=== PATIENT | female | born 1945 | race Caucasian/White ===

== ENCOUNTER → 2016-11-18 | Day surgery (SDC) | payer OTHER ==
[~2016-11-18] VITALS: Ht 165.1 cm; Wt 95.3 kg
[~2016-11-18] MED LIST: ACETAMINOPHEN 325 MG TAB PO PRN; ACETYLCHOLINE OPHTH SOLN 1% 2ML As Ordered ONE; ACETYLCHOLINE OPHTH SOLN 1% 2ML XX ONE; BALANCED SALT IRRIGATION SOL 500ML GLASS BOTTLE (FOR OR EYE COMPOUND) IR ONE; BSS with VANC/TOB/EPI for EYE CASES IR ONE; CEFUROXIME 1MG/0.1ML INTRACAMERAL INJ As Ordered ONE; CEFUROXIME 1MG/0.1ML INTRACAMERAL INJ ICAM ONE; CYCLOPENTOLATE 2% OPHTH SOLN XX ONE; D5W/0.2% SODIUM CHLORIDE 250 ML IV SCH; HEALON DUET (HEALON 10MG/ML 0.55ML & HEALON ENDOCOAT 30MG/ML 0.85ML) As Ordered ONE; HEALON DUET (HEALON 10MG/ML 0.55ML & HEALON ENDOCOAT 30MG/ML 0.85ML) XX ONE; KETOROLAC 0.5% OPHTH SOLN XX ONE; LIDOCAINE 1% SDV 5 ML VIAL As Ordered ONE; LIDOCAINE 1% SDV 5 ML VIAL XX ONE; LIDOCAINE 4% INJ 5 ML AMP OU ONE; MIDAZOLAM INJ 2 MG/2 ML VIAL (J2250) As Ordered ONE; OFLOXACIN 0.3 % (OCUFLOX) OPTH SOL 5ML XX ONE; OMEP20CA3 PO; ONDANSETRON 4MG/2ML VIAL (J2405) As Ordered ONE; PHENYLEPHRINE 2.5% OPHTH SOL 2ML XX ONE; POVIDONE-IODINE 5% OPHTH PREP SOL 30ML As Ordered ONE; PROPARACAINE 0.5% OPHTH SOL 15ML XX PRN; SERT-141 PO; SIMV20TA2 PO; TRIMETHOBENZAMIDE 300 MG CAP PO PRN; TROPICAMIDE 1% OPHTH SOLN 2 ML XX ONE; fentaNYL 100 MCG/2 ML INJECTION (J3010) As Ordered ONE
[2016-11-18 08:30] VITALS: BP 130/78
--- NOTE | 2016-11-18 13:21 | RO ---
DATE OF PROCEDURE: 11/18/2016 PREPROCEDURE DIAGNOSIS: Age-related nuclear cataract right eye. POSTPROCEDURE DIAGNOSIS: Age-related nuclear cataract right eye. PROCEDURE: Phacoemulsification and posterior chamber intraocular lens implantation, right eye. Lens used was a PCB 00 22.0 diopter. SURGEON: Ofe Collazo MD DRY TRANSFER MAN: ANESTHESIA: Topical with sedation. DESCRIPTION OF PROCEDURE: The patient was prepped and draped in the usual fashion. A lid speculum was placed between the lids. The eye was fixated. A stab incision was made to the anterior chamber, and 1% nonpreserved Lidocaine was instilled. Then, viscoelastic was instilled. The eye was refixated. A 2.75 mm sapphire keratome was used to make a clear corneal temporal limbal incision. Capsulorrhexis was begun with a 30-gauge bent needle and then carried out in a circular fashion with capsulorrhexis forceps. The lens was hydrodissected, and then the phacoemulsification unit was used to make a groove in the nucleus and two meridians. The nucleus was then cracked into four quadrants. Each quadrant was removed with the phacoemulsification unit. Any remaining cortex was removed with the I+A unit. Capsular bag was refilled with viscoelastic. A posterior chamber intraocular lens was placed in the capsular bag without difficulty. Any remaining viscoelastic was removed with the I+A unit. The wound was hydrated, and Miochol and cefuroxime were instilled into the anterior chamber. The patient tolerated the procedure well and went to the recovery room in stable condition.
== END | disposition home or self-care (01) ==
LOC: M SDC 06:05
PROVIDERS: ATTEND Ophthalmology
DX: H25.11 Age-related nuclear cataract, right eye (principal); R23.8 Other skin changes; H35.30 Unspecified macular degeneration; K21.9 Gastro-esophageal reflux disease without esophagitis; E78.00 Pure hypercholesterolemia, unspecified; M19.90 Unspecified osteoarthritis, unspecified site; F32.9 Major depressive disorder, single episode, unspecified; F41.9 Anxiety disorder, unspecified; Z79.899 Other long term (current) drug therapy; Z88.2 Allergy status to sulfonamides; Z88.0 Allergy status to penicillin; Z88.7 Allergy status to serum and vaccine; Z88.8 Allergy status to other drugs, medicaments and biological substances; Z91.041 Radiographic dye allergy status; Z91.018 Allergy to other foods; Z91.030 Bee allergy status; Z91.040 Latex allergy status; Z91.048 Other nonmedicinal substance allergy status
CPT/HCPCS: 66984; J2250; J2405; J3010; V2632

== ENCOUNTER → 2017-08-30 | Outpatient (REF) | payer OTHER ==
[~2017-08-30] MED LIST changes: -ACETAMINOPHEN 325 MG TAB PO PRN; -ACETYLCHOLINE OPHTH SOLN 1% 2ML As Ordered ONE; -ACETYLCHOLINE OPHTH SOLN 1% 2ML XX ONE; -BALANCED SALT IRRIGATION SOL 500ML GLASS BOTTLE (FOR OR EYE COMPOUND) IR ONE; -BSS with VANC/TOB/EPI for EYE CASES IR ONE; -CEFUROXIME 1MG/0.1ML INTRACAMERAL INJ As Ordered ONE; -CEFUROXIME 1MG/0.1ML INTRACAMERAL INJ ICAM ONE; -CYCLOPENTOLATE 2% OPHTH SOLN XX ONE; -D5W/0.2% SODIUM CHLORIDE 250 ML IV SCH; -HEALON DUET (HEALON 10MG/ML 0.55ML & HEALON ENDOCOAT 30MG/ML 0.85ML) As Ordered ONE; -HEALON DUET (HEALON 10MG/ML 0.55ML & HEALON ENDOCOAT 30MG/ML 0.85ML) XX ONE; +IBUP-1022 PO; -KETOROLAC 0.5% OPHTH SOLN XX ONE; -LIDOCAINE 1% SDV 5 ML VIAL As Ordered ONE; -LIDOCAINE 1% SDV 5 ML VIAL XX ONE; -LIDOCAINE 4% INJ 5 ML AMP OU ONE; -MIDAZOLAM INJ 2 MG/2 ML VIAL (J2250) As Ordered ONE; -OFLOXACIN 0.3 % (OCUFLOX) OPTH SOL 5ML XX ONE; -ONDANSETRON 4MG/2ML VIAL (J2405) As Ordered ONE; -PHENYLEPHRINE 2.5% OPHTH SOL 2ML XX ONE; -POVIDONE-IODINE 5% OPHTH PREP SOL 30ML As Ordered ONE; -PROPARACAINE 0.5% OPHTH SOL 15ML XX PRN; -SERT-141 PO; +SERT50TA PO; -TRIMETHOBENZAMIDE 300 MG CAP PO PRN; -TROPICAMIDE 1% OPHTH SOLN 2 ML XX ONE; -fentaNYL 100 MCG/2 ML INJECTION (J3010) As Ordered ONE
== END ==
LOC: M SFHCADAM 09:20
PROVIDERS: ATTEND Family Medicine
DX: L82.1 Other seborrheic keratosis (principal)

== ENCOUNTER 2017-09-10 09:10 | Emergency (ER) | payer OTHER ==
[~2017-09-10] VITALS: Ht 165.1 cm; Wt 100.0 kg
[~2017-09-10 09:10] MED LIST changes: -IBUP-1022 PO
--- NOTE | 2017-09-10 10:30 | REP ---
LEFT WRIST COMPLETE: 09/10/2017. Clinical history: Trauma. Findings: Four views are provided. There are degenerative changes at the first CMC joint and articulation between the distal pole of the scaphoid and the multangular bones. No visible or displaced fracture. Carpal joint spaces otherwise preserved. Degenerative changes of the first MCP joint. The metacarpals are without fracture or focal lesion. The other MCP joints of the thumb IP joints show minor degenerative change. Soft tissue swelling dorsal wrist and forearm. Impression: 1. Degenerative changes of the wrist and hand as described. I see no definite displaced fracture. There is soft tissue swelling dorsal hand, wrist and forearm. No visible displaced fracture or avulsion. Slight angulation as the lateral view projects the dorsal aspect of the triquetrum. I do not believe this represents fracture. Please correlate clinically. Signed by Michael Leon MD 09/10/2017 05:29 P
--- NOTE | 2017-09-10 10:44 | REP ---
CT BRAIN WITHOUT CONTRAST: 09/10/2017. Comparison: No prior study. Clinical history: Trauma. Findings: Soft tissue and bone windows are reviewed for each slice level. Lateral ventricles are midline and symmetric. Third and fourth ventricles unremarkable. The basal ganglia intact. There is very minimal heterogeneous low attenuation white matter change suggesting mild small vessel ischemic changes in the cerebral hemispheres. There is mild atrophy but the cortical stripe otherwise preserved. No acute infarct, intracranial hemorrhage, mass, mass effect, edema or extra-axial fluid collection. Brainstem intact. Cerebellum unremarkable. Basal cisterns are intact. Visualized mastoids and sinuses are clear. The skull base and calvarium show no fracture or focal lesion. There is a soft tissue calcification adjacent to the left parietal vertex about 13 mm as a benign finding. No destructive lesion in the adjacent skull. Impression: 1. Mild atrophy, age appropriate with chronic small vessel white matter ischemic changes. 2. No bleed, acute infarct, mass, edema or extra-axial fluid collection. 3. Skull base and calvarium without fracture or focal lesion. Sinuses and mastoids clear. Subcutaneous scalp calcification about 13 mm, benign finding. Signed by Michael Leon MD 09/10/2017 05:30 P
--- NOTE | 2017-09-10 10:49 | REP ---
CT CERVICAL SPINE WITHOUT CONTRAST: 09/10/2017. Clinical history: Trauma. Comparison: None. Findings: Our trauma protocol was utilized. Sagittal reconstructions show a few millimeters of anterior subluxation of C3 on C4 and C4 on C5 felt related to facet arthropathy at those levels. There are posterior osteophytes at C5-6 and C6-7 with spondylosis and disc space narrowing at C4-5 through C6-7. Anterior osteophytes noted at those levels and there are uncinate spurs at multiple levels. The dens is intact. It has degenerative articular relationship to the anterior arch of C1 and is symmetric in relationship to the lateral masses. No compression fracture is seen. No prevertebral swelling. Skull base shows occipital bone intact. The visualized mastoids symmetric. Spinous processes, lamina, transverse processes and pedicles intact. There is facet arthropathy at multiple levels. Central canal mildly stenotic at C5-6 due to disc bulge and posterior osteophytes. Other disc levels have more ample space. The C2-3 and right C3-4 foramina are ample. There is encroachment due to uncinate facet spurs on the left at C3-4 and C4-5 with marginally adequate right C4-5 foramen. At C5-6, there is foraminal encroachment on the right due to combined factors while the left is marginally adequate with both marginally adequate at C6-7 and ample at C7-T1. Impression: 1. Degenerative disc changes at multiple levels as described with a few millimeters of anterolisthesis of C4 on 5 and C3 on 4 due to facet arthritis. 2. No compression fracture or malalignment. No prevertebral swelling. 3. Foraminal encroachment at multiple levels due to uncinate and facet spurs as described in detail above. None of this appears acute. Dens intact. Signed by Michael Leon MD 09/10/2017 05:30 P
--- NOTE | 2017-09-10 11:02 | REP ---
CT MAXILLOFACIAL WITHOUT CONTRAST: 09/10/2017. Clinical history: Trauma. Comparison: No prior study. Findings: Axial soft-tissue and bone windows with coronal and sagittal bone window reconstructions provided. The nasal bones are intact. Nasal spine of the maxilla intact. Slight deviation of the nasal septum towards the right side anteriorly. Maxilla and mandible are edentulous. There are no air-fluid levels or opacifications of the sinuses. The ostiomeatal complexes show patency of the left ostium and infundibulum. The right ostium and infundibulum intact. There is a polina bullosa in the left middle turbinate but not the right. The maxillary sinus hart, zygomatic arches, lateral orbital and medial orbital struts were all intact. Orbital floors intact. The globes, optic nerves and extraocular muscles are unremarkable. The mandibular condyles, rami, coronoid processes and alveolar ridges are without fracture or destructive lesion. Normal articulation with the skull base. Visualized mastoids symmetric and normal. Impression: 1. There is no CT evidence of facial bone fracture. Orbits and contents, visualized sinuses and mastoids are all unremarkable. 2. The parotid and visualized submandibular glands symmetric and normal without visible adenopathy. 3. Skull base and calvarium included were without fracture or focal lesion. Nothing acute. Signed by Michael Leon MD 09/10/2017 05:30 P
[2017-09-10] MEDS ORDERED: ONDANSETRON 4 MG ORAL DISINTEGRATING TAB (S0181) PO ONE (11:15)
[2017-09-10] MEDS ORDERED: MORPHINE 4 MG/ML 1ML SYRINGE SC ONE (11:15)
[2017-09-10] MEDS ORDERED: IBUP-1022 PO (12:11)
--- NOTE | 2017-09-10 12:11 | REP ---
CT LEFT WRIST WITHOUT CONTRAST: 09/10/2017 CLINICAL HISTORY: Question fracture-dislocation triquetrum. TECHNIQUE: Axial soft-tissue and bone windows with coronal and sagittal reformats and 3D surface renderings rotated about the longitudinal and horizontal axis of the wrist. COMPARISON: X-ray today. FINDINGS: Degenerative changes with sclerosis and spurring at multiple articulations. Narrowing is greatest at the articulation from the distal pole of the scaphoid with the multangular bones. CMC joint degenerative changes of the thumb. No widening of the scapholunate or lunatotriquetral joint spaces to suggest any ligament disruption. Distal radioulnar joint grossly intact. No fracture, distal radius or ulna with styloids intact. Hook of the hamate intact. On the axial images, the dorsal aspect of the hamate slightly protrudes above the capitate dorsal margin. This is felt to be normal finding. There are spurs at dorsal superior margin of the capitate, and the greater multangular bone shows a spur as does the distal pole of the scaphoid. On the 3D surface rendering rotated about the longitudinal axis (batch 1), the dorsal aspect of the triquetrum precisely matches the appearance of the lateral view of the wrist with the slight angulation of that view projecting it dorsally on the 3D reconstruction as well as the radiograph. There is no triquetral fracture. No subluxation of the triquetrum. IMPRESSION: 1. No CT evidence of fracture, subluxation, dislocation of the triquetrum. No lunate subluxation, dislocation, or lunate tilt on the sagittal reconstructions. 2. On image 8 of batch 1 of the 3D surface renderings, that projection precisely matches the radiograph on its lateral projection and does show the projection of the dorsal aspect of the triquetrum as on the radiograph. There is no fracture. Degenerative changes throughout the wrist as described above. Signed by Michael Leon MD 09/10/2017 05:32 P
[2017-09-10] MEDS ORDERED: IBUPROFEN 600 MG TAB PO ONE (12:15)
[2017-09-10 13:14] VITALS: BP 153/75
== END 2017-09-10 13:17 | disposition home or self-care (01) ==
LOC: M ED 09:10 → EDBD 09:10 → M ED 13:17
DX: S00.83XA Contusion of other part of head, initial encounter (principal); S63.502A Unspecified sprain of left wrist, initial encounter; W01.198A Fall on same level from slipping, tripping and stumbling with subsequent striking against other object, initial encounter; Y92.019 Unspecified place in single-family (private) house as the place of occurrence of the external cause; Y93.89 Activity, other specified; Y99.8 Other external cause status; H35.30 Unspecified macular degeneration; H54.8 Legal blindness, as defined in USA; I67.82 Cerebral ischemia; E78.00 Pure hypercholesterolemia, unspecified; M50.30 Other cervical disc degeneration, unspecified cervical region; M19.90 Unspecified osteoarthritis, unspecified site; K21.9 Gastro-esophageal reflux disease without esophagitis; Z79.899 Other long term (current) drug therapy; Z88.8 Allergy status to other drugs, medicaments and biological substances; Z91.018 Allergy to other foods; J30.1 Allergic rhinitis due to pollen; Z91.040 Latex allergy status; Z88.0 Allergy status to penicillin; Z88.1 Allergy status to other antibiotic agents; Z88.2 Allergy status to sulfonamides; L23.1 Allergic contact dermatitis due to adhesives; Z98.890 Other specified postprocedural states

== ENCOUNTER 2018-02-14 11:40 | Outpatient (RCR) | payer MEDICARE, SELFPAY, MEDICAID | END 2018-02-28 | LOC: M OT 11:40 | DX: Z51.89 Encounter for other specified aftercare (principal); M15.9 Polyosteoarthritis, unspecified | CPT/HCPCS: 97110 ==

== ENCOUNTER → 2018-04-14 | Outpatient (CLI) | payer MEDICARE | LOC: M WUC 18:37 | DX: M25.552 Pain in left hip (principal) | CPT/HCPCS: 73502 ==

== ENCOUNTER 2018-06-03 18:00 | Emergency (ER) | payer MEDICARE, OTHER, MEDICAID | END 2018-06-03 21:22 | disposition home or self-care (01) | LOC: M ED 18:00 | DX: L03.115 Cellulitis of right lower limb (principal); R20.8 Other disturbances of skin sensation; H35.30 Unspecified macular degeneration; F32.9 Major depressive disorder, single episode, unspecified; Z79.899 Other long term (current) drug therapy; Z91.89 Other specified personal risk factors, not elsewhere classified; Z91.040 Latex allergy status; Z88.0 Allergy status to penicillin; Z88.2 Allergy status to sulfonamides; Z91.018 Allergy to other foods | CPT/HCPCS: 93971 ==

== ENCOUNTER → 2018-06-03 | Outpatient (REF) | payer MEDICARE, MEDICAID ==
[2018-06-03 13:30] LABS: BASO # 0.1 10^3/uL (0.0-0.2); BASO % 0.6 % (0.0-1.0); EOS # 0.1 10^3/uL (0.0-0.50); EOS % 1.5 % (0.0-3.0); HEMATOCRIT 39.3 % (36.0-47.0); HEMOGLOBIN 12.4 g/dl (12.0-15.5); IMMATURE GRANULOCYTE % 0.4 % (0-3.0); LYMPH # 1.6 10^3/uL (1.5-4.5); LYMPH % 20.7 % (24.0-44.0); MEAN CORPUSCULAR HEMOGLOBIN 28.1 pg (27.0-33.0); MEAN CORPUSCULAR HGB CONC 31.6 g/dl (32.0-36.5); MEAN CORPUSCULAR VOLUME 89.1 fl (80.0-96.0); MONO # 0.6 10^3/uL (0.0-0.8); NEUTROPHILS # 5.5 10^3/uL (1.8-7.7); NEUTROPHILS % 69.8 % (36.0-66.0); PLATELET COUNT, AUTOMATED 222 10^3/uL (150-450); RED BLOOD COUNT 4.41 10^6/uL (4.00-5.40); RED CELL DISTRIBUTION WIDTH 13.8 % (11.5-14.5); WHITE BLOOD COUNT 7.8 10^3/uL (4.0-10.0)
[2018-06-03 13:40] LABS: ANION GAP 8 MEQ/L (8-16); BLOOD UREA NITROGEN 10 MG/DL (7-18); C REACTIVE PROTEIN QUANTITATIV 0.78 MG/DL (0.00-0.30); CARBON DIOXIDE LEVEL 28 MEQ/L (21-32); CHLORIDE LEVEL 107 MEQ/L (98-107); CREATININE FOR GFR 0.69 MG/DL (0.55-1.30); GLOMERULAR FILTRATION RATE > 60.0 (>39); GLUCOSE, FASTING 92 MG/DL (70-100); POTASSIUM SERUM 3.9 MEQ/L (3.5-5.1); RHEUMATOID FACTOR QUANT < 10.0 IU/ML (<15.0); SODIUM LEVEL 143 MEQ/L (136-145); URIC ACID 4.1 MG/DL (2.6-6.0)
[2018-06-03 14:01] LABS: ERYTHROCYTE SEDIMENTATION RATE 51 mm/hr (0-30)
[2018-06-03 14:30] LABS: D-DIMER QUANT 764.1 ng/ml (<500)
[2018-06-05 00:06] LABS: ANA (HEP2) Negative (.); Lyme Disease IgG/IgM Antibodie <0.91 ISR (0.00-0.90); Lyme Disease IgM Ab Quantitati <0.80 index (0.00-0.79)
== END ==
LOC: M SFHCADAM 11:36
DX: M79.89 Other specified soft tissue disorders (principal)
CPT/HCPCS: 84550

== ENCOUNTER → 2018-06-09 | Outpatient (CLI) | payer MEDICARE, MEDICAID | LOC: M ADAMS 09:40 | DX: M77.31 Calcaneal spur, right foot (principal); M25.471 Effusion, right ankle | CPT/HCPCS: 73610 ==

== ENCOUNTER → 2018-06-22 | Outpatient (CLI) | payer MEDICARE, MEDICAID | LOC: M RAD 17:11 | DX: M25.471 Effusion, right ankle (principal); S86.211A Strain of muscle(s) and tendon(s) of anterior muscle group at lower leg level, right leg, initial encounter; M65.861 Other synovitis and tenosynovitis, right lower leg; X58.XXXA Exposure to other specified factors, initial encounter; Y92.9 Unspecified place or not applicable; M77.31 Calcaneal spur, right foot | CPT/HCPCS: 73721 ==

== ENCOUNTER → 2018-08-03 | Outpatient (CLI) | payer MEDICARE, MEDICAID | LOC: M ADAMS 13:59 | DX: R05 Cough (principal) | CPT/HCPCS: 71046 ==

== ENCOUNTER → 2018-10-27 | Outpatient (REF) | payer MEDICARE, MEDICAID ==
[~2018-10-27] MED LIST changes: +BACITAB PO; +CLIN150C14 PO; +IBUP-1022 PO; +NORC1TAB4 PO
[2018-10-27 12:56] LABS: BLOOD UREA NITROGEN 10 MG/DL (7-18); CALCIUM LEVEL 9.3 MG/DL (8.8-10.2); CARBON DIOXIDE LEVEL 28 MEQ/L (21-32); CHLORIDE LEVEL 104 MEQ/L (98-107); CREATININE FOR GFR 0.75 MG/DL (0.55-1.30); GLOMERULAR FILTRATION RATE > 60.0 (>39); GLUCOSE, FASTING 87 MG/DL (70-100); POTASSIUM SERUM 5.1 MEQ/L (3.5-5.1); SODIUM LEVEL 140 MEQ/L (136-145)
== END ==
LOC: M SFHCADAM 11:09
PROVIDERS: ATTEND Family Medicine
DX: F41.8 Other specified anxiety disorders (principal)

== ENCOUNTER → 2018-10-28 | Outpatient (CLI) | payer MEDICARE, MEDICAID ==
--- NOTE | 2018-10-28 12:10 | REP ---
Clinical: Swelling. Technique: AP, lateral, bilateral oblique and sunrise views of the right knee. Findings: Lateral view demonstrates anterior swelling without obvious effusion. Moderate tricompartmental osteoarthritic degenerative changes include joint space narrowing, subchondral sclerosis and marginal osteophyte formation. No acute fracture or dislocation. Impression: Anterior swelling and moderate tricompartmental arthritic changes. Electronically Signed by Evin Choe MD 10/28/2018 12:02 P
== END ==
LOC: M ADAMS 11:28
PROVIDERS: ATTEND Family Medicine
DX: M17.11 Unilateral primary osteoarthritis, right knee (principal); M25.761 Osteophyte, right knee; M25.461 Effusion, right knee
CPT/HCPCS: 73564; G0463

== ENCOUNTER → 2018-11-11 | Outpatient (REF) | payer MEDICARE, MEDICAID | LOC: M SFHCPLAZ 17:22 | PROVIDERS: ATTEND Dermatology | DX: B07.9 Viral wart, unspecified (principal) ==

== ENCOUNTER 2019-01-26 09:50 | Outpatient (RCR) | payer MEDICARE | END 2019-01-29 | LOC: M PT 09:50 | PROVIDERS: ATTEND Family Medicine | DX: M25.561 Pain in right knee (principal) ==

== ENCOUNTER 2019-02-20 10:45 | Outpatient (RCR) | payer MEDICARE ==
[~2019-02-20 10:45] MED LIST changes: -NORC1TAB4 PO; +NORC1TAB7 PO; +SERT-141 PO; -SERT50TA PO
== END 2019-02-28 ==
LOC: M PT 10:45
PROVIDERS: ATTEND Family Medicine
DX: M25.561 Pain in right knee (principal)

== ENCOUNTER 2019-03-16 10:40 | Outpatient (RCR) | payer MEDICARE | END 2019-03-31 | LOC: M PT 10:40 | PROVIDERS: ATTEND Family Medicine | DX: M25.561 Pain in right knee (principal) ==

== ENCOUNTER 2019-07-31 17:44 | Emergency (ER) | payer MEDICARE, MEDICAID ==
[~2019-07-31] VITALS: Ht 157.5 cm; Wt 102.3 kg
[~2019-07-31 17:44] MED LIST changes: -OMEP20CA3 PO; +OMEP20CA4 PO
[2019-07-31] MEDS ORDERED: METR-265 (19:40)
[2019-07-31] MEDS ORDERED: HYDR-3363 (19:40)
[2019-07-31] MEDS ORDERED: LEVO500T3 (19:40)
[2019-07-31 21:08] VITALS: BP 125/78
== END 2019-07-31 21:13 | disposition home or self-care (01) ==
LOC: M ED 17:44 → EEVIPCON 17:44 → M ED 21:13
DX: E78.5 Hyperlipidemia, unspecified (principal); F41.9 Anxiety disorder, unspecified; F32.9 Major depressive disorder, single episode, unspecified; L02.01 Cutaneous abscess of face
CPT/HCPCS: 87070; 87077; 87186; 87205; 99284; G0463

== ENCOUNTER → 2019-11-10 | Outpatient (REF) | payer MEDICARE, MEDICAID ==
[~2019-11-10] MED LIST changes: +HYDR-3363; +LEVO500T3; +METR-265; +OMEP1CAP73 PO; -OMEP20CA4 PO; -SIMV20TA2 PO; +SIMV20TA22 PO
[2019-11-10 14:16] LABS: APPEARANCE, URINE HAZY (CLEAR); BACTERIA, URINE AUTO NEGATIVE (NEGATIVE); BILIRUBIN, URINE AUTO NEGATIVE (NEGATIVE); BLOOD, URINE BLOOD NEGATIVE (NEGATIVE); COLOR, URINE YELLOW (YELLOW); GLUCOSE, URINE (UA) AUTO NEGATIVE (NEGATIVE); KETONE, URINE AUTO NEGATIVE (NEGATIVE); LEUKOCYTE ESTERASE, URINE AUTO 1+ (NEGATIVE); NITRITE, URINE AUTO NEGATIVE (NEGATIVE); PROTEIN, URINE AUTO NEGATIVE (NEGATIVE); RBC, URINE AUTO 1 /HPF (0-3); SPECIFIC GRAVITY URINE AUTO 1.014 (1.002-1.035); SQUAMOUS EPITHELIAL CELL UR AU 3 /HPF (0-6); WBC, URINE AUTO 10 /HPF (0-3)
== END ==
LOC: M SFHCADAM 11:16
PROVIDERS: ATTEND Family Medicine
DX: R80.9 Proteinuria, unspecified (principal); Z23 Encounter for immunization
CPT/HCPCS: 81001; 90682; G0008; G0463

== ENCOUNTER → 2019-11-13 | Outpatient (REF) | payer MEDICARE, MEDICAID ==
[2019-11-13 13:16] LABS: BASO # 0.1 10^3/uL (0.0-0.2); BASO % 0.7 % (0.0-1.0); EOS # 0.1 10^3/uL (0.0-0.5); EOS % 1.9 % (0.0-3.0); HEMATOCRIT 41.7 % (36.0-47.0); HEMOGLOBIN 12.9 g/dl (12.0-15.5); LYMPH # 1.8 10^3/uL (1.5-5.0); MEAN CORPUSCULAR HEMOGLOBIN 27.8 pg (27.0-33.0); MEAN CORPUSCULAR HGB CONC 30.9 g/dl (32.0-36.5); MEAN CORPUSCULAR VOLUME 89.9 fl (80.0-96.0); MONO # 0.4 10^3/uL (0.0-0.8); MONO % 6.5 % (0.0-5.0); NEUTROPHILS # 4.4 10^3/uL (1.5-8.5); NEUTROPHILS % 64.6 % (36.0-66.0); PLATELET COUNT, AUTOMATED 241 10^3/uL (150-450); RED BLOOD COUNT 4.64 10^6/uL (4.00-5.40); WHITE BLOOD COUNT 6.8 10^3/uL (4.0-10.0)
[2019-11-13 13:53] LABS: ALBUMIN 3.8 GM/DL (3.2-5.2); ALT/SGPT 18 U/L (12-78); BILIRUBIN,DIRECT 0.1 MG/DL (0.0-0.2); BILIRUBIN,TOTAL 0.3 MG/DL (0.2-1.0); BLOOD UREA NITROGEN 19 MG/DL (7-18); CALCIUM LEVEL 9.3 MG/DL (8.8-10.2); CARBON DIOXIDE LEVEL 27 MEQ/L (21-32); CHLORIDE LEVEL 106 MEQ/L (98-107); CHOLESTEROL LEVEL 214 MG/DL (<200); CHOLESTEROL RISK RATIO 4.553 (<5); CREATININE FOR GFR 0.93 MG/DL (0.55-1.30); GLOMERULAR FILTRATION RATE > 60.0 (>39); GLUCOSE, FASTING 89 MG/DL (70-100); HDL CHOLESTEROL 47 MG/DL (>40); LDL CHOLESTEROL 127 MG/DL (<100); NON-HDL-C 167 MG/DL; POTASSIUM SERUM 5.1 MEQ/L (3.5-5.1); SODIUM LEVEL 141 MEQ/L (136-145); TRIGLYCERIDES LEVEL 198 MG/DL (<150)
== END ==
LOC: M SFHCADAM 08:44
PROVIDERS: ATTEND Family Medicine
DX: R04.0 Epistaxis (principal); E78.5 Hyperlipidemia, unspecified; M15.9 Polyosteoarthritis, unspecified; R80.9 Proteinuria, unspecified
CPT/HCPCS: 17110; 80053; 80061; 82248; 85025; G0463

== ENCOUNTER 2020-10-24 12:07 | Emergency (ER) | payer MEDICARE, MEDICAID ==
[~2020-10-24] VITALS: Ht 157.5 cm; Wt 99.1 kg
[2020-10-24] MEDS ORDERED: TRAZ-252 (12:31)
--- NOTE | 2020-10-24 14:44 | REP ---
INDICATION: BILATERAL LOWER EXTREMITY SWELLING COMPARISON: None. TECHNIQUE: Porras scale and color Doppler evaluation of the bilateral lower extremities using linear high frequency transducer. FINDINGS: Ultrasound examination of the right and left lower extremity deep venous structures from the common femoral vein to the popliteal vein demonstrates normal compressibility flow and wave patterns in response to respiration and augmentation. There is no evidence for deep venous thrombosis. IMPRESSION: No evidence for deep venous thrombosis. <Electronically signed by Evin Choe > 10/24/20 [id number]
[2020-10-24 16:01] LABS: BASO # 0.1 10^3/uL (0.0-0.2); BASO % 0.7 % (0.0-1.0); EOS # 0.2 10^3/uL (0.0-0.5); EOS % 2.8 % (0.0-3.0); HEMOGLOBIN 11.7 g/dl (12.0-15.5); LYMPH # 2.2 10^3/uL (1.5-5.0); LYMPH % 31.9 % (24.0-44.0); MEAN CORPUSCULAR HEMOGLOBIN 27.3 pg (27.0-33.0); MEAN CORPUSCULAR HGB CONC 30.8 g/dl (32.0-36.5); MEAN CORPUSCULAR VOLUME 88.6 fl (80.0-96.0); MONO # 0.5 10^3/uL (0.0-0.8); MONO % 7.2 % (0.0-5.0); NEUTROPHILS # 3.9 10^3/uL (1.5-8.5); NEUTROPHILS % 57.1 % (36.0-66.0); PLATELET COUNT, AUTOMATED 273 10^3/uL (150-450); RED BLOOD COUNT 4.29 10^6/uL (4.00-5.40); WHITE BLOOD COUNT 6.9 10^3/uL (4.0-10.0)
[2020-10-24 16:22] LABS: ERYTHROCYTE SEDIMENTATION RATE 50 mm/hr (0-30)
[2020-10-24 16:33] LABS: BLOOD UREA NITROGEN 7 MG/DL (7-18); C REACTIVE PROTEIN QUANTITATIV 0.89 MG/DL (0.00-0.30); CALCIUM LEVEL 9.6 MG/DL (8.8-10.2); CARBON DIOXIDE LEVEL 28 MEQ/L (21-32); CHLORIDE LEVEL 108 MEQ/L (98-107); CK-MB VALUE MASS < 1.0 NG/ML (<3.6); CPK CREATINE PHOSPHOKINASE 44 U/L (26-192); CREATININE FOR GFR 0.78 MG/DL (0.55-1.30); GLOMERULAR FILTRATION RATE > 60.0 (>39); GLUCOSE, FASTING 84 MG/DL (70-100); MB/CK RELATIVE INDEX 2.27 (< OR =4); NT-PRO BNP 280 PG/ML (<450); POTASSIUM SERUM 3.8 MEQ/L (3.5-5.1); SODIUM LEVEL 140 MEQ/L (136-145); TROPONIN I < 0.02 NG/ML (< 0.10)
[2020-10-24] MEDS ORDERED: KEFL500C17 PO (16:46)
[2020-10-24 17:14] VITALS: BP 145/78
--- NOTE | 2020-11-05 17:34 | ECGEPIP ---
[facility] - ED Test Date: 2020-10-24 Pat Name: SHARLA URRUTIA Department: Room: - Gender: Female [employer] Director: clif : 1945 Requested By: STU CHRISTIANSON Order Number: [id number] Reading MD: Analia Lindsey Measurements Intervals [place] Rate: 70 P: 16 DE: 128 QRS: -58 QRSD: 91 T: 32 QT: 385 QTc: 416 Interpretive Statements SINUS RHYTHM PATTERN CONSISTENT WITH PULMONARY DISEASE LEFT ANTERIOR FASCICULAR BLOCK INTERPRETATION BASED ON A DEFAULT AGE OF 40 YEARS similar to prior EKG 10/17/15 Electronically Signed on 11-05-2020 17:34:28 EST by Analia Lindsey
== END 2020-10-24 17:30 | disposition home or self-care (01) ==
LOC: M ED 12:07
DX: L03.115 Cellulitis of right lower limb (principal); L03.116 Cellulitis of left lower limb; M81.0 Age-related osteoporosis without current pathological fracture; Z88.0 Allergy status to penicillin; Z88.2 Allergy status to sulfonamides; Z88.1 Allergy status to other antibiotic agents; Z91.040 Latex allergy status; Z91.030 Bee allergy status; Z91.018 Allergy to other foods; Z91.048 Other nonmedicinal substance allergy status; Z79.899 Other long term (current) drug therapy

== ENCOUNTER → 2020-11-08 | Outpatient (CLI) | payer MEDICARE ==
[~2020-11-08] MED LIST changes: +KEFL500C17 PO; +TRAZ-252
--- NOTE | 2020-11-08 15:59 | REP ---
INDICATION: DYSPNEA COMPARISON: 08/03/2018 TECHNIQUE: PA and lateral. FINDINGS: The mediastinum and cardiac silhouette are normal/stable. The lung mota demonstrate stable chronic interstitial changes without acute consolidation, effusion, or pneumothorax. The skeletal structures are intact and normal. IMPRESSION: No acute cardiopulmonary process. Chronic changes are appreciated. If the patient remains symptomatic consider chest CT for further investigation. <Electronically signed by Evin Choe > 11/08/20 [id number]
== END ==
LOC: M ADAMS 12:17
PROVIDERS: ATTEND Family Medicine
DX: R06.00 Dyspnea, unspecified (principal)

== ENCOUNTER → 2020-11-08 | Outpatient (REF) | payer MEDICARE ==
[~2020-11-08] MED LIST changes: -CLIN150C14 PO; +CLIN150C15 PO
[2020-11-08 17:58] LABS: ALBUMIN 3.7 GM/DL (3.2-5.2); ALT/SGPT 23 U/L (12-78); BILIRUBIN,TOTAL 0.4 MG/DL (0.2-1.0); BLOOD UREA NITROGEN 10 MG/DL (7-18); CALCIUM LEVEL 9.3 MG/DL (8.8-10.2); CARBON DIOXIDE LEVEL 30 MEQ/L (21-32); CHLORIDE LEVEL 105 MEQ/L (98-107); CREATININE FOR GFR 0.89 MG/DL (0.55-1.30); GLOMERULAR FILTRATION RATE > 60.0 (>39); GLUCOSE, FASTING 86 MG/DL (70-100); NT-PRO BNP 255 PG/ML (<450); POTASSIUM SERUM 5.5 MEQ/L (3.5-5.1); SODIUM LEVEL 138 MEQ/L (136-145); TOTAL PROTEIN 6.8 GM/DL (6.4-8.2)
== END ==
LOC: M SFHCADAM 12:16
PROVIDERS: ATTEND Family Medicine
DX: R60.9 Edema, unspecified (principal); R06.00 Dyspnea, unspecified
CPT/HCPCS: 80053; 83880; 84443; G0463

== ENCOUNTER → 2020-11-12 | Outpatient (REF) | payer MEDICARE ==
[2020-11-12 12:52] LABS: BASO # 0.1 10^3/uL (0.0-0.2); BASO % 0.8 % (0.0-1.0); EOS # 0.1 10^3/uL (0.0-0.5); EOS % 1.9 % (0.0-3.0); HEMATOCRIT 39.7 % (36.0-47.0); HEMOGLOBIN 12.4 g/dl (12.0-15.5); LYMPH # 1.5 10^3/uL (1.5-5.0); LYMPH % 24.2 % (24.0-44.0); MEAN CORPUSCULAR HEMOGLOBIN 27.7 pg (27.0-33.0); MEAN CORPUSCULAR HGB CONC 31.2 g/dl (32.0-36.5); MEAN CORPUSCULAR VOLUME 88.6 fl (80.0-96.0); MONO # 0.4 10^3/uL (0.0-0.8); MONO % 6.2 % (0.0-5.0); NEUTROPHILS # 4.2 10^3/uL (1.5-8.5); NEUTROPHILS % 66.6 % (36.0-66.0); PLATELET COUNT, AUTOMATED 254 10^3/uL (150-450); RED BLOOD COUNT 4.48 10^6/uL (4.00-5.40); WHITE BLOOD COUNT 6.3 10^3/uL (4.0-10.0)
== END ==
LOC: M SFHCADAM 10:59
PROVIDERS: ATTEND Family Medicine
DX: R06.00 Dyspnea, unspecified (principal)

== ENCOUNTER → 2021-01-13 | Outpatient (REF) | payer MEDICARE ==
[~2021-01-13] MED LIST changes: +MOBI4TAB PO
== END ==
LOC: M LAB REF 18:44
PROVIDERS: ATTEND Dermatology
DX: L72.11 Pilar cyst (principal)

== ENCOUNTER 2021-01-20 13:10 | Emergency (ER) | payer MEDICARE ==
[~2021-01-20] VITALS: Ht 165.1 cm; Wt 92.7 kg
[~2021-01-20 13:10] MED LIST changes: -MOBI4TAB PO
--- NOTE | 2021-01-20 14:03 | REP ---
INDICATION: decreased mobility COMPARISON: None. TECHNIQUE: There are five views of the right knee and four views of the left knee. FINDINGS: Right knee: There is advanced osteoarthritis of the medial, lateral and patellofemoral compartments. There is a suprapatellar effusion. No fracture or dislocation. No calcification or foreign body. Left knee: There is advanced osteoarthritis of the medial, lateral patellofemoral compartments. There is a suprapatellar effusion. There is no fracture, dislocation, calcification or foreign body. IMPRESSION: Advanced bilateral tricompartment osteoarthritis. Bilateral suprapatellar effusions. <Electronically signed by Felice Hanley > 01/20/21 1400
[2021-01-20] MEDS ORDERED: KETOROLAC 30 MG/ML 1ML VIAL IM ONE (15:55)
[2021-01-20] MEDS ORDERED: MOBI4TAB PO (16:10)
[2021-01-20 16:28] VITALS: BP 155/91
== END 2021-01-20 16:30 | disposition home or self-care (01) ==
LOC: M ED 13:10
DX: M17.0 Bilateral primary osteoarthritis of knee (principal); Z88.0 Allergy status to penicillin; Z88.1 Allergy status to other antibiotic agents; Z88.2 Allergy status to sulfonamides; Z91.030 Bee allergy status; Z91.040 Latex allergy status; Z91.018 Allergy to other foods; Z91.048 Other nonmedicinal substance allergy status
CPT/HCPCS: 73564; 96372; 99284; J1885

== ENCOUNTER → 2021-03-04 | Outpatient (CLI) | payer MEDICARE ==
[~2021-03-04] MED LIST changes: +ISOVUE-300 61% 50ML VIAL As Ordered ONE; +LIDOCAINE 1% MDV 20ML VIAL As Ordered ONE; +MOBI4TAB PO; +TRIAMCINOLONE ACETONIDE SUSP 40 MG/ML VIAL (J3301) As Ordered ONE
--- NOTE | 2021-03-04 16:44 | REP ---
INDICATION: RT ANKLE OA. COMPARISON: None TECHNIQUE: The procedure was performed by AYSHA Chu, under the direct supervision of Dr. Porras. The benefits and risks of the procedure were explained to the patient, and an informed consent was obtained. Directly prior to the start of the procedure, a formal time-out was completed in the procedure room. The right 2nd and 3rd TMT joint space spaces was localized using fluoroscopic guidance. The skin was prepped and draped in a sterile fashion. Approximately 1 mL of 1% Lidocaine 10 mg/ml was used as a local anesthetic. Using fluoroscopic guidance, a #25 gauge needle was inserted and advanced into the 2nd TMT joint space. Approximately 0.5 mL of Isovue 300 was injected to verify placement. 1.5 mL of the 3 mL solution containing 2 mL 1% lidocaine 10 mg/ml and 1 mL Kenalog 40 milligrams/milliliter was injected into the joint space. The needle was removed and inserted and advanced into the 3rd TMT joint space. Approximately 0.5 mL of Isovue-300 was injected to verify placement. The remaining 1.5 mL of the 3 mL solution was injected into the joint space. The needle was removed and a sterile dressing was applied to the area. FINDINGS: The patient tolerated the procedure well and there were no immediate complications. IMPRESSION: 1. Right 2nd and 3rd TMT joint injections under fluoroscopic guidance.. 0.3 minutes of fluoroscopy time was utilized for this procedure. Some fluoroscopic images are performed with last image hold technology. These images require no additional radiation. <Electronically signed by Mckayla Jackson > 03/04/21 1440 <Electronically signed by Felice Porras > 03/04/21 1641
== END ==
LOC: M RADPRO 13:03
PROVIDERS: ATTEND Physician Assistant
DX: M19.071 Primary osteoarthritis, right ankle and foot (principal)
CPT/HCPCS: 20605; 77002; J3301; Q9967

== ENCOUNTER → 2021-08-11 | Outpatient (CLI) | payer MEDICARE ==
[~2021-08-11] MED LIST changes: -CLIN150C15 PO; +CLIN150C17 PO
--- NOTE | 2021-08-11 16:37 | REP ---
INDICATION: OA OF RT ANKLE/FOOT. COMPARISON: None TECHNIQUE: The procedure was performed by Mckayla Jackson [facility], under the direct supervision of Dr. Porras. The benefits and risks of the procedure were explained to the patient, and an informed consent was obtained. Directly prior to the start of the procedure, a formal time-out was completed in the procedure room. The right 2nd and 3rd TMT joint spaces were localized using fluoroscopic guidance. The skin was prepped and draped in a sterile fashion. Approximately 1 mL of 1% Lidocaine 10 mg/ml was used as a local anesthetic over both joint spaces. Using fluoroscopic guidance, a 25 gauge needle was inserted and advanced into the 2nd TMT joint space. Approximately 0.5 mL of Isovue 300 was injected to verify placement. 1.5 mL of a 3 mL solution containing 2 mL 1% lidocaine 10 mg/ml and 1 mL Kenalog 40 milligrams/milliliter was injected into the joint space. The needle was removed and hemostasis was achieved. The 25 gauge needle was then inserted and advanced into the 3rd TMT joint space under fluoroscopic guidance. The remaining 1.5 mL of the 3 mL solution was injected. The needle was removed and hemostasis was achieved. FINDINGS: The patient tolerated the procedure well and there were no immediate complications. IMPRESSION: 1. Fluoroscopically guided right 2nd and 3rd TMT joint space pain injections. 0.2 minutes of fluoroscopy time was utilized for this procedure. Some fluoroscopic images are performed with last image hold technology. These images require no additional radiation. <Electronically signed by Mckayla Jackson > 08/11/21 1248 <Electronically signed by Felice Porras > 08/11/21 [id number]
== END ==
LOC: M RADPRO 11:14
PROVIDERS: ATTEND Physician Assistant
DX: M19.071 Primary osteoarthritis, right ankle and foot (principal)
CPT/HCPCS: 20600; 77002; J3301; Q9967

== ENCOUNTER → 2021-11-20 | Outpatient (CLI) | payer MEDICARE, MEDICAID ==
[~2021-11-20] MED LIST changes: -LEVO500T3; +LEVO500T4
== END ==
LOC: M RADPRO 12:18
PROVIDERS: ATTEND Physician Assistant
DX: M19.071 Primary osteoarthritis, right ankle and foot (principal)
CPT/HCPCS: 20605; 77002; J3301; Q9967

== ENCOUNTER → 2021-12-04 | Outpatient (REF) | payer MEDICARE ==
[~2021-12-04] MED LIST changes: -ISOVUE-300 61% 50ML VIAL As Ordered ONE; -LIDOCAINE 1% MDV 20ML VIAL As Ordered ONE; -TRIAMCINOLONE ACETONIDE SUSP 40 MG/ML VIAL (J3301) As Ordered ONE
[2021-12-04 12:33] LABS: BASO # 0.1 10^3/uL (0.0-0.2); BASO % 0.7 % (0.0-1.0); EOS # 0.3 10^3/uL (0.0-0.5); EOS % 3.1 % (0.0-3.0); HEMOGLOBIN 10.9 g/dl (12.0-15.5); LYMPH # 1.8 10^3/uL (1.5-5.0); LYMPH % 19.8 % (24.0-44.0); MEAN CORPUSCULAR HEMOGLOBIN 27.8 pg (27.0-33.0); MEAN CORPUSCULAR HGB CONC 31.1 g/dl (32.0-36.5); MEAN CORPUSCULAR VOLUME 89.3 fl (80.0-96.0); MONO # 0.6 10^3/uL (0.0-0.8); MONO % 6.2 % (2.0-8.0); NEUTROPHILS # 6.4 10^3/uL (1.5-8.5); NEUTROPHILS % 69.8 % (36.0-66.0); PLATELET COUNT, AUTOMATED 279 10^3/uL (150-450); RED BLOOD COUNT 3.92 10^6/uL (4.00-5.40); WHITE BLOOD COUNT 9.1 10^3/uL (4.0-10.0)
[2021-12-04 13:07] LABS: ALBUMIN 3.1 GM/DL (3.2-5.2); BILIRUBIN,TOTAL 0.3 MG/DL (0.2-1.0); CALCIUM LEVEL 9.3 MG/DL (8.8-10.2); CHOLESTEROL RISK RATIO 3.672 (<5); CREATININE FOR GFR 1.08 MG/DL (0.55-1.30); GLOMERULAR FILTRATION RATE 52.2 (>39); POTASSIUM SERUM 4.4 MEQ/L (3.5-5.1); THYROID STIMULATING HORMONE 3.01 uIU/ML (0.358-3.740); TOTAL PROTEIN 6.3 GM/DL (6.4-8.2)
== END ==
LOC: M SFHCADAM 10:17
PROVIDERS: ATTEND Family Medicine
DX: Z00.00 Encounter for general adult medical examination without abnormal findings (principal); E78.00 Pure hypercholesterolemia, unspecified

== ENCOUNTER → 2022-01-01 | Outpatient (REF) | payer MEDICARE ==
[2022-01-01 13:20] LABS: BASO # 0.1 10^3/uL (0.0-0.2); EOS # 0.1 10^3/uL (0.0-0.5); EOS % 1.5 % (0.0-3.0); HEMATOCRIT 36.6 % (36.0-47.0); HEMOGLOBIN 11.8 g/dl (12.0-15.5); LYMPH # 1.9 10^3/uL (1.5-5.0); LYMPH % 20.4 % (24.0-44.0); MEAN CORPUSCULAR HEMOGLOBIN 27.6 pg (27.0-33.0); MEAN CORPUSCULAR HGB CONC 32.2 g/dl (32.0-36.5); MEAN CORPUSCULAR VOLUME 85.5 fl (80.0-96.0); MONO # 0.6 10^3/uL (0.0-0.8); MONO % 6.8 % (2.0-8.0); NEUTROPHILS # 6.5 10^3/uL (1.5-8.5); NEUTROPHILS % 69.9 % (36.0-66.0); PLATELET COUNT, AUTOMATED 298 10^3/uL (150-450); RED BLOOD COUNT 4.28 10^6/uL (4.00-5.40); WHITE BLOOD COUNT 9.2 10^3/uL (4.0-10.0)
[2022-01-01 13:56] LABS: FOLATE 8.4 NG/ML; PERCENT SATURATION 20.8 % (13.2-45.0)
== END ==
LOC: M SFHCPLAZ 10:59
PROVIDERS: ATTEND Family Medicine
DX: D64.9 Anemia, unspecified (principal)

== ENCOUNTER → 2022-03-20 | Outpatient (CLI) | payer MEDICAID, MEDICARE ==
[~2022-03-20] MED LIST changes: +ISOVUE-300 61% 50ML VIAL As Ordered ONE; +LIDOCAINE 1% MDV 20ML VIAL As Ordered ONE; +TRIAMCINOLONE ACETONIDE SUSP 40 MG/ML VIAL (J3301) As Ordered ONE
== END ==
LOC: M RADPRO 14:22
PROVIDERS: ATTEND Physician Assistant
DX: M19.071 Primary osteoarthritis, right ankle and foot (principal)
CPT/HCPCS: 20600; 77002; J3301; Q9967

== ENCOUNTER 2022-04-15 22:27 | Emergency (ER) | payer MEDICARE ==
[~2022-04-15] VITALS: Ht 154.9 cm; Wt 85.9 kg
[~2022-04-15 22:27] MED LIST changes: -ISOVUE-300 61% 50ML VIAL As Ordered ONE; -LIDOCAINE 1% MDV 20ML VIAL As Ordered ONE; -TRIAMCINOLONE ACETONIDE SUSP 40 MG/ML VIAL (J3301) As Ordered ONE
[2022-04-15 23:21] LABS: BASO # 0.1 10^3/uL (0.0-0.2); BASO % 0.8 % (0.0-1.0); EOS # 0.3 10^3/uL (0.0-0.5); EOS % 3.5 % (0.0-3.0); HEMATOCRIT 35.5 % (36.0-47.0); HEMOGLOBIN 11.3 g/dl (12.0-15.5); LYMPH # 2.7 10^3/uL (1.5-5.0); LYMPH % 37.1 % (24.0-44.0); MEAN CORPUSCULAR HEMOGLOBIN 26.8 pg (27.0-33.0); MEAN CORPUSCULAR HGB CONC 31.8 g/dl (32.0-36.5); MEAN CORPUSCULAR VOLUME 84.3 fl (80.0-96.0); MONO # 0.5 10^3/uL (0.0-0.8); MONO % 7.3 % (2.0-8.0); NEUTROPHILS # 3.8 10^3/uL (1.5-8.5); PLATELET COUNT, AUTOMATED 264 10^3/uL (150-450); RED BLOOD COUNT 4.21 10^6/uL (4.00-5.40); WHITE BLOOD COUNT 7.4 10^3/uL (4.0-10.0)
[2022-04-15 23:46] LABS: CK-MB VALUE MASS < 1.0 NG/ML (<3.6); CPK CREATINE PHOSPHOKINASE 53 U/L (26-192); MB/CK RELATIVE INDEX 1.89 (< OR =4)
[2022-04-15 23:53] LABS: CALCIUM LEVEL 9.1 MG/DL (8.8-10.2); CREATININE FOR GFR 1.29 MG/DL (0.55-1.30); GLOMERULAR FILTRATION RATE 42.6 (>39); POTASSIUM SERUM 4.1 MEQ/L (3.5-5.1); THYROID STIMULATING HORMONE 2.2 uIU/ML (0.358-3.740)
[2022-04-16] MEDS ORDERED: NS 500 ML IV ONE (00:55)
[2022-04-16] MEDS ORDERED: KETOROLAC 30 MG/ML 1ML VIAL IV ONE (01:00)
[2022-04-16] MEDS ORDERED: METAL LOCK LOOP XX ONE (03:21)
[2022-04-16 05:57] VITALS: BP 142/65
== END 2022-04-16 05:59 | disposition home or self-care (01) ==
LOC: M ED 22:27
DX: S09.90XA Unspecified injury of head, initial encounter (principal); S80.01XA Contusion of right knee, initial encounter; W01.198A Fall on same level from slipping, tripping and stumbling with subsequent striking against other object, initial encounter; Y92.015 Private garage of single-family (private) house as the place of occurrence of the external cause; M43.12 Spondylolisthesis, cervical region; M48.02 Spinal stenosis, cervical region; R94.31 Abnormal electrocardiogram [ECG] [EKG]; H35.30 Unspecified macular degeneration; K21.9 Gastro-esophageal reflux disease without esophagitis; E78.5 Hyperlipidemia, unspecified; F32.A Depression, unspecified; Z88.0 Allergy status to penicillin; Z88.2 Allergy status to sulfonamides; Z88.8 Allergy status to other drugs, medicaments and biological substances; Z91.040 Latex allergy status; Z91.048 Other nonmedicinal substance allergy status; Z79.899 Other long term (current) drug therapy
CPT/HCPCS: 70450; 72125; 73564; 80048; 82550; 82553; 84443; 84484; 85025; 93005; 93041; 94760; 96361; 96374; 99285; J1885

== ENCOUNTER → 2022-04-29 | Outpatient (CLI) | payer MEDICARE | LOC: M WUC 13:00 | PROVIDERS: ATTEND Physician Assistant | DX: S30.0XXA Contusion of lower back and pelvis, initial encounter (principal); W07.XXXA Fall from chair, initial encounter; Y92.009 Unspecified place in unspecified non-institutional (private) residence as the place of occurrence of the external cause ==

== ENCOUNTER 2022-05-05 10:05 | Emergency (ER) | payer MEDICARE, MEDICAID ==
[~2022-05-05] VITALS: Ht 149.9 cm; Wt 86.8 kg
[2022-05-05] MEDS ORDERED: DULO1CAP6 (10:28)
[2022-05-05] MEDS ORDERED: HYDR-3363 (10:28)
[2022-05-05] MEDS ORDERED: ACET300T52 (10:28)
[2022-05-05] MEDS ORDERED: GABA-282 (10:28)
[2022-05-05] MEDS ORDERED: ACETAMINOPHEN 1000MG 100ML IV BTL (OFIRMEV) (J0131 PER 10MG) IV ONE (11:00)
[2022-05-05 11:48] LABS: BASO # 0.1 10^3/uL (0.0-0.2); BASO % 0.6 % (0.0-1.0); EOS % 0.4 % (0.0-3.0); HEMOGLOBIN 11.5 g/dl (12.0-15.5); LYMPH # 1.7 10^3/uL (1.5-5.0); LYMPH % 16.4 % (24.0-44.0); MEAN CORPUSCULAR HEMOGLOBIN 26.5 pg (27.0-33.0); MEAN CORPUSCULAR HGB CONC 31.9 g/dl (32.0-36.5); MEAN CORPUSCULAR VOLUME 82.9 fl (80.0-96.0); MONO # 0.6 10^3/uL (0.0-0.8); MONO % 5.9 % (2.0-8.0); NEUTROPHILS # 7.8 10^3/uL (1.5-8.5); NEUTROPHILS % 76.2 % (36.0-66.0); PLATELET COUNT, AUTOMATED 302 10^3/uL (150-450); RED BLOOD COUNT 4.34 10^6/uL (4.00-5.40); WHITE BLOOD COUNT 10.3 10^3/uL (4.0-10.0)
[2022-05-05 12:16] LABS: ALBUMIN 3.4 GM/DL (3.2-5.2); ALT/SGPT 12 U/L (12-78); BILIRUBIN,DIRECT 0.2 MG/DL (0.0-0.2); BILIRUBIN,TOTAL 0.9 MG/DL (0.2-1.0); BLOOD UREA NITROGEN 11 MG/DL (7-18); CALCIUM LEVEL 10.1 MG/DL (8.8-10.2); CARBON DIOXIDE LEVEL 26 MEQ/L (21-32); CHLORIDE LEVEL 106 MEQ/L (98-107); CK-MB VALUE MASS < 1.0 NG/ML (<3.6); CPK CREATINE PHOSPHOKINASE 37 U/L (26-192); CREATININE FOR GFR 0.91 MG/DL (0.55-1.30); GLOMERULAR FILTRATION RATE > 60.0 (>39); GLUCOSE, FASTING 102 MG/DL (70-100); LIPASE 91 U/L (73-393); POTASSIUM SERUM 3.9 MEQ/L (3.5-5.1); SODIUM LEVEL 140 MEQ/L (136-145); TOTAL PROTEIN 7.1 GM/DL (6.4-8.2)
[2022-05-05] MEDS ORDERED: fentaNYL 100 MCG/2 ML INJECTION IV ONE (12:20)
[2022-05-05 14:10] LABS: APPEARANCE, URINE CLOUDY (CLEAR); BACTERIA, URINE AUTO NEGATIVE (NEGATIVE); BILIRUBIN, URINE AUTO NEGATIVE (NEGATIVE); BLOOD, URINE BLOOD 1+ (NEGATIVE); COLOR, URINE YELLOW (YELLOW); GLUCOSE, URINE (UA) AUTO NEGATIVE (NEGATIVE); KETONE, URINE AUTO 1+ mg/dL (NEGATIVE); LEUKOCYTE ESTERASE, URINE AUTO 2+ (NEGATIVE); NITRITE, URINE AUTO NEGATIVE (NEGATIVE); PROTEIN, URINE AUTO 1+ mg/dL (NEGATIVE); RBC, URINE AUTO 0 /HPF (0-3); SPECIFIC GRAVITY URINE AUTO 1.014 (1.002-1.035); SQUAMOUS EPITHELIAL CELL UR AU 2 /HPF (0-6); WBC, URINE AUTO 9 /HPF (0-3)
[2022-05-05] MEDS ORDERED: HYDR-4429 PO (14:44)
[2022-05-05] MEDS ORDERED: CEPH500C PO (14:44)
[2022-05-05 15:04] VITALS: BP 171/74
== END 2022-05-05 15:14 | disposition home or self-care (01) ==
LOC: M ED 10:05 → EDBD 10:05 → M ED 15:14
DX: N39.0 Urinary tract infection, site not specified (principal); M25.551 Pain in right hip; Z88.0 Allergy status to penicillin; Z88.1 Allergy status to other antibiotic agents; Z88.2 Allergy status to sulfonamides; Z91.018 Allergy to other foods; Z91.040 Latex allergy status
CPT/HCPCS: 73552; 73700; 80048; 80076; 81001; 82550; 82553; 83690; 84484; 85025; 93005; 96374; 96375; 99284; J0131; J3010

== ENCOUNTER 2022-05-15 15:29 | Observation (INO) | payer MEDICARE, MEDICAID ==
[~2022-05-15] VITALS: Ht 147.3 cm; Wt 89.0 kg
[~2022-05-15 15:29] MED LIST changes: +ACET300T52 PO; +CEPH500C PO; +DULO1CAP6 PO; +GABA-282 PO; +HYDR-3363 PO; +HYDR-4429 PO
[2022-05-15] MEDS ORDERED: HEPARIN SOD (PORCINE) 5000UNITS/ML 1ML VIAL/SYRINGE IV ONE (19:05)
[2022-05-15] MEDS ORDERED: HEPARIN DRIP 25,000 UNITS in IV 1 EA IV SCH (19:05)
[2022-05-15 20:33] LABS: BASO # 0.1 10^3/uL (0.0-0.2); BASO % 0.7 % (0.0-1.0); EOS # 0.5 10^3/uL (0.0-0.5); EOS % 4.3 % (0.0-3.0); HEMATOCRIT 32.8 % (36.0-47.0); HEMOGLOBIN 10.4 g/dl (12.0-15.5); LYMPH # 2.7 10^3/uL (1.5-5.0); LYMPH % 24.4 % (24.0-44.0); MEAN CORPUSCULAR HEMOGLOBIN 27.5 pg (27.0-33.0); MEAN CORPUSCULAR HGB CONC 31.7 g/dl (32.0-36.5); MEAN CORPUSCULAR VOLUME 86.8 fl (80.0-96.0); MONO # 0.7 10^3/uL (0.0-0.8); MONO % 6.2 % (2.0-8.0); NEUTROPHILS % 63.9 % (36.0-66.0); PLATELET COUNT, AUTOMATED 334 10^3/uL (150-450); RED BLOOD COUNT 3.78 10^6/uL (4.00-5.40); WHITE BLOOD COUNT 10.9 10^3/uL (4.0-10.0)
[2022-05-15 20:52] LABS: PARTIAL THROMBOPLASTIN TIME 26.6 SECONDS (25.9-37.0)
[2022-05-15 20:55] LABS: INR 0.9; PROTHROMBIN TIME 12.6 SECONDS (12.7-14.5)
[2022-05-15 21:07] LABS: RSV AMPLIFICATION NEGATIVE (NEGATIVE)
[2022-05-15] MEDS ORDERED: MELO7.5T35 PO (21:08)
[2022-05-15] MEDS ORDERED: LIDO1PAD TOP (21:09)
[2022-05-15] MEDS ORDERED: HOME MED LIST COMPLETE! XX SCH (21:10)
[2022-05-15] MEDS ORDERED: MORPHINE 4 MG/ML 1ML VIAL/SYRINGE IV ONE (21:15)
[2022-05-15 22:20] LABS: ALBUMIN 2.9 GM/DL (3.2-5.2); BILIRUBIN,DIRECT 0.1 MG/DL (0.0-0.2); BILIRUBIN,TOTAL 0.3 MG/DL (0.2-1.0); CALCIUM LEVEL 9.7 MG/DL (8.8-10.2); CREATININE FOR GFR 1.65 MG/DL (0.55-1.30); POTASSIUM SERUM 3.8 MEQ/L (3.5-5.1)
[2022-05-16] VITALS (7 sets, daily range): BP systolic 87–143; BP diastolic 52–80
[2022-05-16 01:54] LABS: APPEARANCE, URINE HAZY (CLEAR); BACTERIA, URINE AUTO 1+ (NEGATIVE); BILIRUBIN, URINE AUTO NEGATIVE (NEGATIVE); BLOOD, URINE BLOOD 3+ (NEGATIVE); COLOR, URINE YELLOW (YELLOW); GLUCOSE, URINE (UA) AUTO NEGATIVE (NEGATIVE); KETONE, URINE AUTO NEGATIVE (NEGATIVE); LEUKOCYTE ESTERASE, URINE AUTO 3+ (NEGATIVE); NITRITE, URINE AUTO NEGATIVE (NEGATIVE); PROTEIN, URINE AUTO NEGATIVE (NEGATIVE); RBC, URINE AUTO 10 /HPF (0-3); SPECIFIC GRAVITY URINE AUTO 1.014 (1.002-1.035); SQUAMOUS EPITHELIAL CELL UR AU 3 /HPF (0-6); UROBILINOGEN, URINE AUTO 0.2 mg/dL (0.0-2.0); WBC, URINE AUTO 44 /HPF (0-3)
[2022-05-16] MEDS ORDERED: HEPARIN SOD (PORCINE) 5000UNITS/ML 1ML VIAL/SYRINGE IV PRN (03:10)
[2022-05-16 03:38] LABS: CALCIUM LEVEL 9.2 MG/DL (8.8-10.2); CREATININE FOR GFR 1.74 MG/DL (0.55-1.30); GLOMERULAR FILTRATION RATE 30.1 (>39)
[2022-05-16] MEDS ORDERED: NS 1,000 ML IV SCH (06:30)
[2022-05-16 07:56] LABS: HEMATOCRIT 30.8 % (36.0-47.0); HEMOGLOBIN 9.6 g/dl (12.0-15.5); MEAN CORPUSCULAR HEMOGLOBIN 27.4 pg (27.0-33.0); MEAN CORPUSCULAR HGB CONC 31.2 g/dl (32.0-36.5); MEAN CORPUSCULAR VOLUME 87.7 fl (80.0-96.0); PLATELET COUNT, AUTOMATED 275 10^3/uL (150-450); RED BLOOD COUNT 3.51 10^6/uL (4.00-5.40); WHITE BLOOD COUNT 7.6 10^3/uL (4.0-10.0)
[2022-05-16] MEDS ORDERED: MELOXICAM (MOBIC) 7.5 MG TAB PO SCH (09:00)
[2022-05-16] MEDS: DULoxetine 30MG CAPSULE (CYMBALTA) PO SCH (10:06)
[2022-05-16] MEDS: OMEPRAZOLE 20MG CAP PO SCH (10:07)
[2022-05-16] MEDS: GABAPENTIN 300 MG CAP PO SCH ×2 (10:07→20:18)
[2022-05-16] MEDS: LIDOCAINE 5% (LIDODERM) PATCH TOP SCH (10:07)
[2022-05-16] MEDS: NS 1,000 ML IV SCH ×2 (17:03→20:19)
[2022-05-16] MEDS: HEPARIN DRIP 25,000 UNITS in IV 1 EA IV SCH (17:04)
[2022-05-16] MEDS: SIMVASTATIN 20 MG TAB PO SCH (20:18)
[2022-05-16] MEDS: **NOTE PATIENT COMMENT** MISC XX SCH (20:19)
[2022-05-17 06:21] VITALS: BP 127/59
[2022-05-17 06:21] LABS: CALCIUM LEVEL 9.1 MG/DL (8.8-10.2); CREATININE FOR GFR 1.03 MG/DL (0.55-1.30); GLOMERULAR FILTRATION RATE 55.2 (>39); MAGNESIUM LEVEL 2.1 MG/DL (1.8-2.4); POTASSIUM SERUM 5.6 MEQ/L (3.5-5.1)
[2022-05-17 10:00] VITALS: BP 98/70
[2022-05-17] MEDS: GABAPENTIN 300 MG CAP PO SCH ×2 (10:03→20:55)
[2022-05-17] MEDS: LIDOCAINE 5% (LIDODERM) PATCH TOP SCH (10:03)
[2022-05-17] MEDS: DULoxetine 30MG CAPSULE (CYMBALTA) PO SCH (10:03)
[2022-05-17] MEDS: OMEPRAZOLE 20MG CAP PO SCH (10:03)
[2022-05-17] MEDS: HEPARIN DRIP 25,000 UNITS in IV 1 EA IV SCH (10:37)
[2022-05-17 11:55] VITALS: BP 118/52
[2022-05-17 14:00] VITALS: BP 128/64
[2022-05-17] MEDS: ACETAMINOPHEN TAB 650MG DOSE (2X325MG) PO PRN ×2 (14:50→20:56)
[2022-05-17 15:40] VITALS: BP 128/64
[2022-05-17] MEDS: SIMVASTATIN 20 MG TAB PO SCH (20:55)
[2022-05-17] MEDS: **NOTE PATIENT COMMENT** MISC XX SCH (20:56)
[2022-05-18 02:00] VITALS: BP 122/36
[2022-05-18] MEDS: HEPARIN DRIP 25,000 UNITS in IV 1 EA IV SCH (04:14)
[2022-05-18 06:02] LABS: HEMATOCRIT 27.6 % (36.0-47.0); HEMOGLOBIN 8.7 g/dl (12.0-15.5); MEAN CORPUSCULAR HEMOGLOBIN 26.9 pg (27.0-33.0); MEAN CORPUSCULAR HGB CONC 31.5 g/dl (32.0-36.5); MEAN CORPUSCULAR VOLUME 85.4 fl (80.0-96.0); PLATELET COUNT, AUTOMATED 282 10^3/uL (150-450); RED BLOOD COUNT 3.23 10^6/uL (4.00-5.40); WHITE BLOOD COUNT 6.8 10^3/uL (4.0-10.0)
[2022-05-18 06:19] VITALS: BP 144/71
[2022-05-18 06:32] LABS: BLOOD UREA NITROGEN 17 MG/DL (7-18); CALCIUM LEVEL 8.9 MG/DL (8.8-10.2); CARBON DIOXIDE LEVEL 22 MEQ/L (21-32); CHLORIDE LEVEL 116 MEQ/L (98-107); CREATININE FOR GFR 0.95 MG/DL (0.55-1.30); GLOMERULAR FILTRATION RATE > 60.0 (>39); GLUCOSE, FASTING 110 MG/DL (70-100); MAGNESIUM LEVEL 1.8 MG/DL (1.8-2.4); PHOSPHORUS LEVEL 3.1 MG/DL (2.5-4.9); POTASSIUM SERUM 4.6 MEQ/L (3.5-5.1); SODIUM LEVEL 145 MEQ/L (136-145)
[2022-05-18] MEDS: OMEPRAZOLE 20MG CAP PO SCH (08:59)
[2022-05-18] MEDS: DULoxetine 30MG CAPSULE (CYMBALTA) PO SCH (08:59)
[2022-05-18] MEDS: GABAPENTIN 300 MG CAP PO SCH (08:59)
[2022-05-18] MEDS: LIDOCAINE 5% (LIDODERM) PATCH TOP SCH (08:59)
[2022-05-18] MEDS ORDERED: ELIQ5TAB PO (11:35)
[2022-05-18] MEDS ORDERED: CEPH500C PO (11:41)
[2022-05-18] MEDS ORDERED: APIXABAN 5 MG TAB (ELIQUIS) PO ONE (13:00)
[2022-05-18 14:00] VITALS: BP 116/66
== END 2022-05-18 17:47 | disposition home or self-care (01) ==
LOC: M ED 15:29 → M ED INP 15:30 → ENRESERV 05-16 00:14 → M MSPAV 05-16 01:18
PROVIDERS: ADMIT Internal Medicine; ATTEND Internal Medicine
DX: I82.412 Acute embolism and thrombosis of left femoral vein (principal); I82.432 Acute embolism and thrombosis of left popliteal vein; R29.6 Repeated falls; R04.0 Epistaxis; N17.9 Acute kidney failure, unspecified; N39.0 Urinary tract infection, site not specified; N28.89 Other specified disorders of kidney and ureter; D64.9 Anemia, unspecified; H35.3290 Exudative age-related macular degeneration, unspecified eye, stage unspecified; R06.02 Shortness of breath; E78.5 Hyperlipidemia, unspecified; K21.9 Gastro-esophageal reflux disease without esophagitis; F41.9 Anxiety disorder, unspecified; M19.90 Unspecified osteoarthritis, unspecified site; M54.9 Dorsalgia, unspecified; G89.29 Other chronic pain; Z79.899 Other long term (current) drug therapy; Z79.2 Long term (current) use of antibiotics; Z91.048 Other nonmedicinal substance allergy status; Z88.0 Allergy status to penicillin; Z88.2 Allergy status to sulfonamides; Z88.8 Allergy status to other drugs, medicaments and biological substances; Z88.1 Allergy status to other antibiotic agents; Z91.040 Latex allergy status; Z91.030 Bee allergy status; Z91.018 Allergy to other foods; Z66 Do not resuscitate
CPT/HCPCS: 36415; 76775; 80048; 80076; 81001; 83735; 84100; 84132; 85025; 85027; 85610; 85730; 87088; 87186; 87631; 87641; 93971; 96361; 96374; 96375; 96376; 97161; 97165; 97530; 97535; 99284; G0378; J1644; J2270

== ENCOUNTER → 2022-05-28 | Outpatient (CLI) | payer MEDICARE, MEDICAID ==
[~2022-05-28] MED LIST changes: +ELIQ5TAB PO; +LEVO1TAB39; -LEVO500T4; +LIDO1PAD TOP; +MELO7.5T35 PO
[2022-05-28 15:19] LABS: BASO # 0.1 10^3/uL (0.0-0.2); BASO % 0.8 % (0.0-1.0); EOS # 0.3 10^3/uL (0.0-0.5); EOS % 3.3 % (0.0-3.0); HEMATOCRIT 32.9 % (36.0-47.0); HEMOGLOBIN 10.3 g/dl (12.0-15.5); LYMPH # 1.6 10^3/uL (1.5-5.0); LYMPH % 18.1 % (24.0-44.0); MEAN CORPUSCULAR HEMOGLOBIN 27.2 pg (27.0-33.0); MEAN CORPUSCULAR HGB CONC 31.3 g/dl (32.0-36.5); MEAN CORPUSCULAR VOLUME 86.8 fl (80.0-96.0); MONO # 0.5 10^3/uL (0.0-0.8); MONO % 5.4 % (2.0-8.0); NEUTROPHILS # 6.3 10^3/uL (1.5-8.5); NEUTROPHILS % 72.1 % (36.0-66.0); PLATELET COUNT, AUTOMATED 339 10^3/uL (150-450); RED BLOOD COUNT 3.79 10^6/uL (4.00-5.40); WHITE BLOOD COUNT 8.7 10^3/uL (4.0-10.0)
[2022-05-28 15:50] LABS: BLOOD UREA NITROGEN 12 MG/DL (7-18); CALCIUM LEVEL 9.9 MG/DL (8.8-10.2); CARBON DIOXIDE LEVEL 25 MEQ/L (21-32); CHLORIDE LEVEL 108 MEQ/L (98-107); CREATININE FOR GFR 0.88 MG/DL (0.55-1.30); GLOMERULAR FILTRATION RATE > 60.0 (>39); GLUCOSE, FASTING 88 MG/DL (70-100); POTASSIUM SERUM 4.6 MEQ/L (3.5-5.1); SODIUM LEVEL 142 MEQ/L (136-145)
[2022-05-28 15:51] LABS: ALBUMIN 3.4 GM/DL (3.2-5.2); ALT/SGPT 11 U/L (12-78); BILIRUBIN,TOTAL 0.5 MG/DL (0.2-1.0); TOTAL PROTEIN 6.8 GM/DL (6.4-8.2)
== END ==
LOC: M PLALAB 12:42
PROVIDERS: ATTEND Physician Assistant
DX: N17.9 Acute kidney failure, unspecified (principal); N39.0 Urinary tract infection, site not specified

== ENCOUNTER → 2022-05-31 | Outpatient (CLI) | payer MEDICARE, MEDICAID ==
[~2022-05-31] MED LIST changes: -LEVO1TAB39; +LEVO500T4
== END ==
LOC: M LABSMTC 11:27
PROVIDERS: ATTEND Anesthesiology
DX: Z01.812 Encounter for preprocedural laboratory examination (principal); Z20.822 Contact with and (suspected) exposure to COVID-19

== ENCOUNTER 2022-06-02 13:24 | Observation (INO) | payer MEDICARE, MEDICAID ==
[~2022-06-02] VITALS: Ht 149.9 cm; Wt 85.6 kg
[~2022-06-02 13:24] MED LIST changes: -ENOXAPARIN 100MG/1ML SYRINGE (J1650 PER 10MG) SC SCH; -GABAPENTIN 300 MG CAP PO SCH; -HYDROCORTISONE 100 MG/2 ML VIAL (J1720 PER 1) As Ordered ONE; -HYDROCORTISONE 100 MG/2 ML VIAL (J1720 PER 1) IV ONE; +HYDROCORTISONE 100 MG/2 ML VIAL (J1720 PER 1) ONE; -ISOVUE-300 61% 50ML VIAL As Ordered ONE; +ISOVUE-300 61% 50ML VIAL ONE; -LIDOCAINE 1% MDV 20ML VIAL As Ordered ONE; +LIDOCAINE 1% MDV 20ML VIAL ONE; -MELOXICAM (MOBIC) 7.5 MG TAB PO SCH; -MIDAZOLAM INJ 2MG/2ML VIAL (J2250 PER 1MG) As Ordered ONE; +MIDAZOLAM INJ 2MG/2ML VIAL (J2250 PER 1MG) ONE; -OMEPRAZOLE 20MG CAP PO SCH; -SIMVASTATIN 20 MG TAB PO SCH; -ceFAZolin 2 GM/D5W 50 ML IV BAG (J0690 PER 500MG) As Ordered ONE; +ceFAZolin 2 GM/D5W 50 ML IV BAG (J0690 PER 500MG) ONE; -ceFAZolin SOD 2 GM in IV 1 EA IV ONE; -diphenhydrAMINE 50MG/ML VIAL (J1200) As Ordered ONE; -diphenhydrAMINE 50MG/ML VIAL (J1200) IV ONE; +diphenhydrAMINE 50MG/ML VIAL (J1200) ONE; -fentaNYL 100 MCG/2 ML INJECTION As Ordered ONE; +fentaNYL 100 MCG/2 ML INJECTION ONE
[2022-06-02] MEDS ORDERED: MOM 30ML SUSPENSION UDC PO PRN (14:45)
[2022-06-02] MEDS ORDERED: MAALOX 30 ML SUSP *UDC PO PRN (14:45)
[2022-06-02] MEDS ORDERED: ELIQ5TAB PO (14:59)
[2022-06-02] MEDS ORDERED: HYDR-3363 PO (15:02)
[2022-06-02] MEDS ORDERED: HOME MED LIST COMPLETE! XX SCH (15:05)
[2022-06-02 15:42] VITALS: BP 146/72
[2022-06-02] MEDS ORDERED: GABAPENTIN 300 MG CAP PO SCH (16:00)
[2022-06-02] MEDS ORDERED: SODIUM CHLORIDE 0.9% INJ 10 ML SYR IV PRN (16:10)
[2022-06-02] MEDS: ACETAMINOPHEN TAB 650MG DOSE (2X325MG) PO PRN (17:07)
[2022-06-02] MEDS: SODIUM CHLORIDE 0.9% INJ 10 ML SYR IV SCH (17:08)
[2022-06-02] MEDS: ENOXAPARIN 100MG/1ML SYRINGE (J1650 PER 10MG) SC SCH (17:09)
[2022-06-02] MEDS ORDERED: GABAPENTIN 300 MG CAP PO PRN (17:30)
[2022-06-02 17:57] LABS: BASO % 0.3 % (0.0-1.0); HEMATOCRIT 28.9 % (36.0-47.0); HEMOGLOBIN 9.1 g/dl (12.0-15.5); LYMPH # 0.9 10^3/uL (1.5-5.0); LYMPH % 14.4 % (24.0-44.0); MEAN CORPUSCULAR HEMOGLOBIN 26.9 pg (27.0-33.0); MEAN CORPUSCULAR HGB CONC 31.5 g/dl (32.0-36.5); MEAN CORPUSCULAR VOLUME 85.5 fl (80.0-96.0); MONO # 0.2 10^3/uL (0.0-0.8); MONO % 3.3 % (2.0-8.0); NEUTROPHILS # 5.2 10^3/uL (1.5-8.5); NEUTROPHILS % 81.8 % (36.0-66.0); PLATELET COUNT, AUTOMATED 328 10^3/uL (150-450); RED BLOOD COUNT 3.38 10^6/uL (4.00-5.40); WHITE BLOOD COUNT 6.4 10^3/uL (4.0-10.0)
[2022-06-02 18:25] LABS: ALBUMIN 2.9 GM/DL (3.2-5.2); ALT/SGPT 10 U/L (12-78); BILIRUBIN,TOTAL 0.4 MG/DL (0.2-1.0); BLOOD UREA NITROGEN 8 MG/DL (7-18); CALCIUM LEVEL 9.4 MG/DL (8.8-10.2); CARBON DIOXIDE LEVEL 24 MEQ/L (21-32); CHLORIDE LEVEL 112 MEQ/L (98-107); CREATININE FOR GFR 0.86 MG/DL (0.55-1.30); GLOMERULAR FILTRATION RATE > 60.0 (>39); GLUCOSE, FASTING 120 MG/DL (70-100); MAGNESIUM LEVEL 2.2 MG/DL (1.8-2.4); POTASSIUM SERUM 4.4 MEQ/L (3.5-5.1); SODIUM LEVEL 144 MEQ/L (136-145); TOTAL PROTEIN 5.8 GM/DL (6.4-8.2)
[2022-06-02 20:00] VITALS: BP 113/86
[2022-06-02] MEDS ORDERED: MELOXICAM (MOBIC) 7.5 MG TAB PO SCH (21:00)
[2022-06-02] MEDS ORDERED: SIMVASTATIN 20 MG TAB PO SCH ×2 (21:00)
[2022-06-03] VITALS: BP 102/55
[2022-06-03 04:00] VITALS: BP 142/66
[2022-06-03] MEDS: ENOXAPARIN 100MG/1ML SYRINGE (J1650 PER 10MG) SC SCH (04:23)
[2022-06-03] MEDS: SODIUM CHLORIDE 0.9% INJ 10 ML SYR IV SCH (06:04)
[2022-06-03 06:30] LABS: BASO # 0.1 10^3/uL (0.0-0.2); EOS # 0.2 10^3/uL (0.0-0.5); EOS % 2.7 % (0.0-3.0); HEMATOCRIT 26.3 % (36.0-47.0); HEMOGLOBIN 8.3 g/dl (12.0-15.5); LYMPH # 2.5 10^3/uL (1.5-5.0); LYMPH % 34.9 % (24.0-44.0); MEAN CORPUSCULAR HEMOGLOBIN 27.7 pg (27.0-33.0); MEAN CORPUSCULAR HGB CONC 31.6 g/dl (32.0-36.5); MEAN CORPUSCULAR VOLUME 87.7 fl (80.0-96.0); MONO # 0.6 10^3/uL (0.0-0.8); MONO % 8.3 % (2.0-8.0); NEUTROPHILS # 3.8 10^3/uL (1.5-8.5); NEUTROPHILS % 52.8 % (36.0-66.0); PLATELET COUNT, AUTOMATED 300 10^3/uL (150-450); WHITE BLOOD COUNT 7.1 10^3/uL (4.0-10.0)
[2022-06-03 08:00] VITALS: BP 155/79
[2022-06-03 08:09] LABS: ALBUMIN 2.5 GM/DL (3.2-5.2); ALT/SGPT 10 U/L (12-78); BILIRUBIN,TOTAL 0.4 MG/DL (0.2-1.0); BLOOD UREA NITROGEN 9 MG/DL (7-18); CALCIUM LEVEL 9.1 MG/DL (8.8-10.2); CARBON DIOXIDE LEVEL 29 MEQ/L (21-32); CHLORIDE LEVEL 111 MEQ/L (98-107); CREATININE FOR GFR 0.88 MG/DL (0.55-1.30); GLOMERULAR FILTRATION RATE > 60.0 (>39); GLUCOSE, FASTING 88 MG/DL (70-100); MAGNESIUM LEVEL 2.3 MG/DL (1.8-2.4); POTASSIUM SERUM 3.8 MEQ/L (3.5-5.1); SODIUM LEVEL 143 MEQ/L (136-145); TOTAL PROTEIN 5.4 GM/DL (6.4-8.2)
[2022-06-03] MEDS ORDERED: OMEPRAZOLE 20MG CAP PO SCH ×2 (09:00)
[2022-06-03] MEDS ORDERED: DULoxetine 30MG CAPSULE (CYMBALTA) PO SCH (09:00)
[2022-06-03] MEDS: ACETAMINOPHEN TAB 650MG DOSE (2X325MG) PO PRN (09:22)
[2022-06-03 12:00] VITALS: BP 136/63
== END 2022-06-03 16:00 | disposition home or self-care (01) ==
LOC: OBSVTOIN 15:11 → INTOOBSV 15:11 → M PCU 15:11
PROVIDERS: ADMIT Surgery Vascular Surgery; ATTEND Family Medicine
DX: I87.092 Postthrombotic syndrome with other complications of left lower extremity (principal); R93.421 Abnormal radiologic findings on diagnostic imaging of right kidney; Z91.81 History of falling; E78.5 Hyperlipidemia, unspecified; K21.9 Gastro-esophageal reflux disease without esophagitis; F41.9 Anxiety disorder, unspecified; H35.30 Unspecified macular degeneration; H54.7 Unspecified visual loss; N17.9 Acute kidney failure, unspecified; Z79.899 Other long term (current) drug therapy; Z79.01 Long term (current) use of anticoagulants; Z91.048 Other nonmedicinal substance allergy status; Z88.0 Allergy status to penicillin; Z88.2 Allergy status to sulfonamides; Z91.030 Bee allergy status; Z91.040 Latex allergy status; Z88.8 Allergy status to other drugs, medicaments and biological substances; Z91.018 Allergy to other foods; Z88.1 Allergy status to other antibiotic agents; Z20.822 Contact with and (suspected) exposure to COVID-19; Z01.812 Encounter for preprocedural laboratory examination
CPT/HCPCS: 36415; 37187; 37191; 37248; 37249; 80048; 80053; 83735; 85025; 85027; 85610; 85730; 86850; 86900; 86901; 87426; 96372; 97116; 97161; 99152; 99153; C1725; C1751; C1769; C1880; C1887; C1894; G0378; J0690; J1200; J1642; J1644; J1650; J1720; J2250; J3010; Q9967

== ENCOUNTER → 2022-06-02 | Outpatient (CLI) | payer MEDICARE, MEDICAID ==
[~2022-06-02] VITALS: Ht 149.9 cm; Wt 80.7 kg
[~2022-06-02] MED LIST changes: +ENOXAPARIN 100MG/1ML SYRINGE (J1650 PER 10MG) SC SCH; +GABAPENTIN 300 MG CAP PO SCH; +HYDROCORTISONE 100 MG/2 ML VIAL (J1720 PER 1) As Ordered ONE; +HYDROCORTISONE 100 MG/2 ML VIAL (J1720 PER 1) IV ONE; +ISOVUE-300 61% 50ML VIAL As Ordered ONE; +LEVO1TAB39; -LEVO500T4; +LIDOCAINE 1% MDV 20ML VIAL As Ordered ONE; +MELOXICAM (MOBIC) 7.5 MG TAB PO SCH; +MIDAZOLAM INJ 2MG/2ML VIAL (J2250 PER 1MG) As Ordered ONE; +OMEPRAZOLE 20MG CAP PO SCH; +SIMVASTATIN 20 MG TAB PO SCH; +ceFAZolin 2 GM/D5W 50 ML IV BAG (J0690 PER 500MG) As Ordered ONE; +ceFAZolin SOD 2 GM in IV 1 EA IV ONE; +diphenhydrAMINE 50MG/ML VIAL (J1200) As Ordered ONE; +diphenhydrAMINE 50MG/ML VIAL (J1200) IV ONE; +fentaNYL 100 MCG/2 ML INJECTION As Ordered ONE
[2022-06-02 08:36] LABS: HEMATOCRIT 31.2 % (36.0-47.0); HEMOGLOBIN 9.9 g/dl (12.0-15.5); MEAN CORPUSCULAR HEMOGLOBIN 27.6 pg (27.0-33.0); MEAN CORPUSCULAR HGB CONC 31.7 g/dl (32.0-36.5); MEAN CORPUSCULAR VOLUME 86.9 fl (80.0-96.0); PLATELET COUNT, AUTOMATED 340 10^3/uL (150-450); RED BLOOD COUNT 3.59 10^6/uL (4.00-5.40); WHITE BLOOD COUNT 7.5 10^3/uL (4.0-10.0)
[2022-06-02 08:49] LABS: CALCIUM LEVEL 9.7 MG/DL (8.8-10.2); GLOMERULAR FILTRATION RATE 57.1 (>39); MAGNESIUM LEVEL 2.4 MG/DL (1.8-2.4); POTASSIUM SERUM 3.8 MEQ/L (3.5-5.1)
[2022-06-02 09:25] LABS: INR 1.23
[2022-06-02 09:26] LABS: PARTIAL THROMBOPLASTIN TIME 43.9 SECONDS (25.9-37.0)
[2022-06-02 15:00] VITALS: BP 140/67
== END ==
LOC: M IRPRO 07:11
PROVIDERS: ATTEND Surgery Vascular Surgery
DX: I87.092 Postthrombotic syndrome with other complications of left lower extremity (principal)

== ENCOUNTER → 2022-07-08 | Outpatient (CLI) | payer MEDICARE, MEDICAID ==
[~2022-07-08] MED LIST changes: -HYDROCORTISONE 100 MG/2 ML VIAL (J1720 PER 1) ONE; -ISOVUE-300 61% 50ML VIAL ONE; +ISOVUE-370 76% 100ML VIAL As Ordered ONE; -LIDOCAINE 1% MDV 20ML VIAL ONE; -MIDAZOLAM INJ 2MG/2ML VIAL (J2250 PER 1MG) ONE; -ceFAZolin 2 GM/D5W 50 ML IV BAG (J0690 PER 500MG) ONE; -diphenhydrAMINE 50MG/ML VIAL (J1200) ONE; -fentaNYL 100 MCG/2 ML INJECTION ONE
== END ==
LOC: M RAD 15:48
PROVIDERS: ATTEND Family Medicine
DX: N28.89 Other specified disorders of kidney and ureter (principal)
CPT/HCPCS: 71260; 74178; Q9967

== ENCOUNTER → 2022-07-10 | Outpatient (CLI) | payer MEDICAID, MEDICARE ==
[~2022-07-10] MED LIST changes: +ISOVUE-300 61% 5ML SYRINGE As Ordered ONE; -ISOVUE-370 76% 100ML VIAL As Ordered ONE; +LIDOCAINE 1% MDV 20ML VIAL As Ordered ONE; +TRIAMCINOLONE ACETONIDE SUSP 40 MG/ML VIAL (J3301) As Ordered ONE
== END ==
LOC: M RAD 08:00
PROVIDERS: ATTEND Surgery Vascular Surgery
DX: I82.402 Acute embolism and thrombosis of unspecified deep veins of left lower extremity (principal)
CPT/HCPCS: 76000; 93971; 93979; J3301; Q9967

== ENCOUNTER → 2022-07-10 | Outpatient (CLI) | payer MEDICAID, MEDICARE ==
[~2022-07-10] MED LIST changes: -ISOVUE-300 61% 5ML SYRINGE As Ordered ONE; -LIDOCAINE 1% MDV 20ML VIAL As Ordered ONE; -TRIAMCINOLONE ACETONIDE SUSP 40 MG/ML VIAL (J3301) As Ordered ONE
== END ==
LOC: M RAD 07:57
PROVIDERS: ATTEND Physician Assistant
DX: M19.90 Unspecified osteoarthritis, unspecified site (principal)

== ENCOUNTER → 2022-07-22 | Outpatient (CLI) | payer MEDICARE ==
[~2022-07-22] MED LIST changes: +ENOXAPARIN 80MG/0.8ML SYRINGE (J1650 PER 10MG) SC ONE; +HYDROCORTISONE 100 MG/2 ML VIAL (J1720 PER 1) As Ordered ONE; +HYDROCORTISONE 100 MG/2 ML VIAL (J1720 PER 1) IV STA; +ISOVUE-300 61% 50ML VIAL As Ordered ONE; +LIDOCAINE 1% MDV 20ML VIAL As Ordered ONE; +MIDAZOLAM INJ 2MG/2ML VIAL (J2250 PER 1MG) As Ordered ONE; +ceFAZolin 2 GM/D5W 50 ML IV BAG (J0690 PER 500MG) As Ordered ONE; +ceFAZolin SOD 2 GM in IV 1 EA IV ONE; +diphenhydrAMINE 50MG/ML VIAL (J1200) As Ordered ONE; +diphenhydrAMINE 50MG/ML VIAL (J1200) IV STA; +fentaNYL 100 MCG/2 ML INJECTION As Ordered ONE
[2022-07-22 08:07] LABS: HEMATOCRIT 29.9 % (36.0-47.0); HEMOGLOBIN 9.1 g/dl (12.0-15.5); MEAN CORPUSCULAR HEMOGLOBIN 25.3 pg (27.0-33.0); MEAN CORPUSCULAR HGB CONC 30.4 g/dl (32.0-36.5); MEAN CORPUSCULAR VOLUME 83.3 fl (80.0-96.0); PLATELET COUNT, AUTOMATED 262 10^3/uL (150-450); RED BLOOD COUNT 3.59 10^6/uL (4.00-5.40); WHITE BLOOD COUNT 3.6 10^3/uL (4.0-10.0)
[2022-07-22 08:18] LABS: INR 1.01; PARTIAL THROMBOPLASTIN TIME 32.2 SECONDS (25.9-37.0); PROTHROMBIN TIME 13.7 SECONDS (12.7-14.5)
[2022-07-22 08:49] LABS: CALCIUM LEVEL 9.1 MG/DL (8.8-10.2); CREATININE FOR GFR 0.96 MG/DL (0.55-1.30); GLOMERULAR FILTRATION RATE 59.8 (>39); POTASSIUM SERUM 4.6 MEQ/L (3.5-5.1)
[2022-07-22 12:15] VITALS: BP 129/63
== END ==
LOC: M IRPRO 06:03
PROVIDERS: ATTEND Surgery Vascular Surgery
DX: I82.402 Acute embolism and thrombosis of unspecified deep veins of left lower extremity (principal); M17.0 Bilateral primary osteoarthritis of knee; Z79.01 Long term (current) use of anticoagulants; U07.1 COVID-19
CPT/HCPCS: 36415; 37193; 80048; 85027; 85610; 85730; 86850; 86900; 86901; 87635; 99152; 99153; C1769; C1773; C1887; C1894; J0690; J1200; J1644; J1650; J1720; J2250; J3010; Q9967

== ENCOUNTER → 2022-12-10 | Outpatient (CLI) | payer MEDICARE ==
[~2022-12-10] MED LIST changes: -ENOXAPARIN 80MG/0.8ML SYRINGE (J1650 PER 10MG) SC ONE; -HYDROCORTISONE 100 MG/2 ML VIAL (J1720 PER 1) As Ordered ONE; -HYDROCORTISONE 100 MG/2 ML VIAL (J1720 PER 1) IV STA; -ISOVUE-300 61% 50ML VIAL As Ordered ONE; -LIDOCAINE 1% MDV 20ML VIAL As Ordered ONE; -MIDAZOLAM INJ 2MG/2ML VIAL (J2250 PER 1MG) As Ordered ONE; -ceFAZolin 2 GM/D5W 50 ML IV BAG (J0690 PER 500MG) As Ordered ONE; -ceFAZolin SOD 2 GM in IV 1 EA IV ONE; -diphenhydrAMINE 50MG/ML VIAL (J1200) As Ordered ONE; -diphenhydrAMINE 50MG/ML VIAL (J1200) IV STA; -fentaNYL 100 MCG/2 ML INJECTION As Ordered ONE
== END ==
LOC: M WHC 07:43
PROVIDERS: ATTEND Family Medicine
DX: R60.0 Localized edema (principal)

== ENCOUNTER 2023-01-04 15:05 | Inpatient (IN) | payer MEDICARE ==
[~2023-01-04] VITALS: Ht 162.6 cm; Wt 85.0 kg
[2023-01-04 16:54] LABS: MEAN CORPUSCULAR HEMOGLOBIN 16.1 pg (27.0-33.0); MEAN CORPUSCULAR HGB CONC 26.2 g/dl (32.0-36.5); MEAN CORPUSCULAR VOLUME 61.3 fl (80.0-96.0); PLATELET COUNT, AUTOMATED 437 10^3/uL (150-450); WHITE BLOOD COUNT 8.4 10^3/uL (4.0-10.0)
[2023-01-04 17:00] LABS: BLOOD UREA NITROGEN 13 MG/DL (9-23); CALCIUM LEVEL 8.6 MG/DL (8.3-10.6); CARBON DIOXIDE LEVEL 24 MMOL/L (20-31); CHLORIDE LEVEL 108 MMOL/L (98-107); CREATININE FOR GFR 0.95 MG/DL (0.55-1.30); GLOMERULAR FILTRATION RATE > 60.0 (>39); GLUCOSE, FASTING 111 MG/DL (74-106); POTASSIUM SERUM 3.9 MMOL/L (3.5-5.1); SODIUM LEVEL 143 MMOL/L (136-145)
[2023-01-04 17:08] LABS: HEMATOCRIT 14.1 % (36.0-47.0); HEMOGLOBIN 3.7 g/dl (12.0-15.5)
[2023-01-04] MEDS: ACETAMINOPHEN TAB 650MG DOSE (2X325MG) PO PRN (18:30)
[2023-01-04 18:32] LABS: RSV AMPLIFICATION NEGATIVE (NEGATIVE)
[2023-01-04] MEDS ORDERED: HYDR-3363 PO (19:05)
[2023-01-04] MEDS ORDERED: ACET650T61 PO (19:05)
[2023-01-04] MEDS ORDERED: ELIQ2.5T PO (19:05)
[2023-01-04] MEDS ORDERED: TRAM50TA2 PO (19:05)
[2023-01-04] MEDS ORDERED: MELO7.5T35 PO (19:05)
[2023-01-04] MEDS ORDERED: HOME MED LIST COMPLETE! XX SCH (19:10)
[2023-01-04 19:39] VITALS: BP 130/61
[2023-01-04 22:55] VITALS: BP 161/67
[2023-01-04 23:23] VITALS: BP 154/68
[2023-01-04 23:47] VITALS: BP 143/60
[2023-01-05] VITALS (33 sets, daily range): BP systolic 115–151; BP diastolic 53–102; O2SAT 92–98
[2023-01-05] MEDS: ACETAMINOPHEN TAB 650MG DOSE (2X325MG) PO PRN (05:31)
[2023-01-05 07:23] LABS: HEMATOCRIT 22.6 % (36.0-47.0); MEAN CORPUSCULAR HGB CONC 29.2 g/dl (32.0-36.5); MEAN CORPUSCULAR VOLUME 71.7 fl (80.0-96.0); RED BLOOD COUNT 3.15 10^6/uL (4.00-5.40); WHITE BLOOD COUNT 6.5 10^3/uL (4.0-10.0)
[2023-01-05 07:37] LABS: HEMOGLOBIN 6.6 g/dl (12.0-15.5); PLATELET COUNT, AUTOMATED 280 10^3/uL (150-450)
[2023-01-05 07:52] LABS: ALKALINE PHOSPHATASE 73 U/L (46-116); ALT/SGPT < 9 U/L (7.0-40); AST/SGOT 12 U/L (<34); BLOOD UREA NITROGEN 11 MG/DL (9-23); CALCIUM LEVEL 8.2 MG/DL (8.3-10.6); CARBON DIOXIDE LEVEL 23 MMOL/L (20-31); CHLORIDE LEVEL 109 MMOL/L (98-107); CREATININE FOR GFR 0.95 MG/DL (0.55-1.30); GLOMERULAR FILTRATION RATE > 60.0 (>39); GLUCOSE, FASTING 88 MG/DL (74-106); SODIUM LEVEL 143 MMOL/L (136-145); TOTAL PROTEIN 5.7 G/DL (5.7-8.2)
[2023-01-05 08:31] LABS: FERRITIN 1.9 NG/ML (7.3-270.7)
[2023-01-05] MEDS ORDERED: FUROSEMIDE 40MG/4ML VIAL IV ONE ×2 (09:00→19:00)
[2023-01-05] MEDS: DULoxetine 30MG CAPSULE (CYMBALTA) PO SCH (09:44)
[2023-01-05] MEDS: OMEPRAZOLE 20MG CAP PO SCH (09:45)
[2023-01-05] MEDS: ACETAMINOPHEN 650MG ER TAB (TYLENOL ARTHRITIS) PO SCH ×3 (12:25→20:18)
[2023-01-05 15:35] LABS: HEMATOCRIT 30.1 % (36.0-47.0)
[2023-01-05 15:40] LABS: HEMOGLOBIN 9.4 g/dl (12.0-15.5)
[2023-01-05] MEDS: SODIUM CHLORIDE NASAL 0.65% SPRAY BTL (OCEAN) SCH ×2 (17:10→20:18)
[2023-01-05] MEDS ORDERED: SIMVASTATIN 20 MG TAB PO SCH (21:00)
[2023-01-05 21:05] LABS: HEMATOCRIT 29.8 % (36.0-47.0); HEMOGLOBIN 9.3 g/dl (12.0-15.5)
[2023-01-06] VITALS (10 sets, daily range): BP systolic 112–146; BP diastolic 55–67; O2SAT 92–95
[2023-01-06 05:26] LABS: BASO # 0.1 10^3/uL (0.0-0.2); BASO % 1.7 % (0.0-1.0); EOS # 0.3 10^3/uL (0.0-0.5); EOS % 3.8 % (0.0-3.0); HEMATOCRIT 30.9 % (36.0-47.0); HEMOGLOBIN 9.6 g/dl (12.0-15.5); LYMPH # 2.2 10^3/uL (1.5-5.0); LYMPH % 32.9 % (24.0-44.0); MEAN CORPUSCULAR HEMOGLOBIN 22.5 pg (27.0-33.0); MEAN CORPUSCULAR HGB CONC 31.1 g/dl (32.0-36.5); MEAN CORPUSCULAR VOLUME 72.5 fl (80.0-96.0); MONO # 0.7 10^3/uL (0.0-0.8); NEUTROPHILS # 3.3 10^3/uL (1.5-8.5); NEUTROPHILS % 50.3 % (36.0-66.0); PLATELET COUNT, AUTOMATED 330 10^3/uL (150-450); RED BLOOD COUNT 4.26 10^6/uL (4.00-5.40); WHITE BLOOD COUNT 6.6 10^3/uL (4.0-10.0)
[2023-01-06 05:53] LABS: CALCIUM LEVEL 8.5 MG/DL (8.3-10.6); CREATININE FOR GFR 1.09 MG/DL (0.55-1.30); GLOMERULAR FILTRATION RATE 51.5 (>39); POTASSIUM SERUM 3.3 MMOL/L (3.5-5.1)
[2023-01-06] MEDS ORDERED: POTASSIUM CHLORIDE 10MEQ SR TABLET PO ONE (08:00)
[2023-01-06] MEDS: OMEPRAZOLE 20MG CAP PO SCH (08:31)
[2023-01-06] MEDS: SODIUM CHLORIDE NASAL 0.65% SPRAY BTL (OCEAN) SCH (08:32)
[2023-01-06] MEDS: DULoxetine 30MG CAPSULE (CYMBALTA) PO SCH (08:32)
[2023-01-06] MEDS ORDERED: AYR0.65S NARES (09:02)
[2023-01-06] MEDS ORDERED: FERR325T3 PO (09:05)
[2023-01-06] MEDS ORDERED: COLA100C5 PO (09:05)
[2023-01-06] MEDS: ACETAMINOPHEN 650MG ER TAB (TYLENOL ARTHRITIS) PO SCH (09:24)
[2023-01-06 09:44] LABS: HEMATOCRIT 33.2 % (36.0-47.0); HEMOGLOBIN 10.4 g/dl (12.0-15.5)
[2023-01-06] MEDS ORDERED: FERRIC CARBOXYMALTOSE INJ 750 MG, VIAL MATE ADAPTER 1 EACH in NS 250 ML IV ONE (11:00)
== END 2023-01-06 14:51 | disposition home or self-care (01) | DRG 813 ==
LOC: M ED 15:05 → EDBD 15:05 → M ED INP 18:04 → EEVIPCON 18:04 → M PCU 23:22
PROVIDERS: ADMIT Family Medicine; ATTEND Family Medicine
PROC: 30233N1 Transfusion of Nonautologous Red Blood Cells into Peripheral Vein, Percutaneous Approach (ICD-10-PCS; principal; 2023-01-04)
DX: D68.32 Hemorrhagic disorder due to extrinsic circulating anticoagulants (principal); D62 Acute posthemorrhagic anemia; R04.0 Epistaxis; K21.9 Gastro-esophageal reflux disease without esophagitis; E78.5 Hyperlipidemia, unspecified; G47.00 Insomnia, unspecified; G62.9 Polyneuropathy, unspecified; H35.30 Unspecified macular degeneration; M19.90 Unspecified osteoarthritis, unspecified site; F41.8 Other specified anxiety disorders; Z79.01 Long term (current) use of anticoagulants; Z95.828 Presence of other vascular implants and grafts; Z86.718 Personal history of other venous thrombosis and embolism; Z79.899 Other long term (current) drug therapy; Z88.0 Allergy status to penicillin; Z88.2 Allergy status to sulfonamides; Z88.3 Allergy status to other anti-infective agents; Z91.018 Allergy to other foods; Z91.040 Latex allergy status; Z91.048 Other nonmedicinal substance allergy status; Z20.822 Contact with and (suspected) exposure to COVID-19

== ENCOUNTER → 2023-01-13 | Outpatient (CLI) | payer MEDICARE ==
[~2023-01-13] MED LIST changes: +ACET650T61 PO; +AYR0.65S NARES; +COLA100C5 PO; +ELIQ2.5T PO; +FERR325T3 PO; +TRAM50TA2 PO
== END ==
LOC: M ADAMS 14:08
PROVIDERS: ATTEND Physician Assistant
DX: M53.84 Other specified dorsopathies, thoracic region (principal); M53.86 Other specified dorsopathies, lumbar region; R05.1 Acute cough

== ENCOUNTER → 2023-01-13 | Outpatient (REF) | payer MEDICARE ==
[2023-01-13 16:24] LABS: BASO # 0.1 10^3/uL (0.0-0.2); BASO % 1.3 % (0.0-1.0); EOS # 0.3 10^3/uL (0.0-0.5); EOS % 3.5 % (0.0-3.0); HEMATOCRIT 37.7 % (36.0-47.0); HEMOGLOBIN 11.1 g/dl (12.0-15.5); LYMPH # 1.6 10^3/uL (1.5-5.0); LYMPH % 20.9 % (24.0-44.0); MEAN CORPUSCULAR HEMOGLOBIN 24.1 pg (27.0-33.0); MEAN CORPUSCULAR HGB CONC 29.4 g/dl (32.0-36.5); MEAN CORPUSCULAR VOLUME 81.8 fl (80.0-96.0); MONO # 0.6 10^3/uL (0.0-0.8); MONO % 8.3 % (2.0-8.0); NEUTROPHILS # 5.1 10^3/uL (1.5-8.5); NEUTROPHILS % 65.7 % (36.0-66.0); PLATELET COUNT, AUTOMATED 282 10^3/uL (150-450); RED BLOOD COUNT 4.61 10^6/uL (4.00-5.40); WHITE BLOOD COUNT 7.7 10^3/uL (4.0-10.0)
[2023-01-13 16:42] LABS: IRON (FE) 62 UG/DL (50-170); PERCENT SATURATION 16.5 % (13.2-45.0); TOTAL IRON BINDING CAPACITY 376 UG/DL (250-425)
[2023-01-13 16:45] LABS: ALBUMIN 3.7 G/DL (3.2-5.2); ALKALINE PHOSPHATASE 89 U/L (46-116); ALT/SGPT 14 U/L (7.0-40); AST/SGOT 29 U/L (<34); BILIRUBIN,TOTAL 0.6 MG/DL (0.3-1.2); BLOOD UREA NITROGEN 14 MG/DL (9-23); CALCIUM LEVEL 9.6 MG/DL (8.3-10.6); CARBON DIOXIDE LEVEL 25 MMOL/L (20-31); CHLORIDE LEVEL 107 MMOL/L (98-107); CREATININE FOR GFR 0.93 MG/DL (0.55-1.30); FERRITIN 361.9 NG/ML (7.3-270.7); GLOMERULAR FILTRATION RATE > 60.0 (>39); GLUCOSE, FASTING 87 MG/DL (74-106); POTASSIUM SERUM 4.7 MMOL/L (3.5-5.1); SODIUM LEVEL 141 MMOL/L (136-145); TOTAL PROTEIN 6.7 G/DL (5.7-8.2)
[2023-01-13 20:03] LABS: ANISOCYTOSIS 2+; HYPOCHROMASIA 2+; POIKILOCYTOSIS 1+; SCHISTOCYTES 2+
[2023-01-13 20:04] LABS: OVALOCYTES 1+; PLATELET ESTIMATE NORMAL (NORMAL)
== END ==
LOC: M SFHCADAM 14:02
PROVIDERS: ATTEND Physician Assistant
DX: R04.0 Epistaxis (principal); D50.0 Iron deficiency anemia secondary to blood loss (chronic)

== ENCOUNTER → 2023-01-20 | Outpatient (CLI) | payer MEDICARE | LOC: M PLAIMG 14:18 | PROVIDERS: ATTEND Physician Assistant | DX: M19.071 Primary osteoarthritis, right ankle and foot (principal) ==

== ENCOUNTER → 2023-02-17 | Outpatient (CLI) | payer MEDICARE | LOC: M RAD 15:43 | PROVIDERS: ATTEND Physician Assistant | DX: R60.0 Localized edema (principal) ==

== ENCOUNTER → 2023-02-17 | Outpatient (REF) | payer MEDICARE ==
[2023-02-17 17:05] LABS: BASO # 0.1 10^3/uL (0.0-0.2); BASO % 0.9 % (0.0-1.0); EOS # 0.2 10^3/uL (0.0-0.5); EOS % 3.4 % (0.0-3.0); HEMATOCRIT 37.4 % (36.0-47.0); HEMOGLOBIN 11.4 g/dl (12.0-15.5); LYMPH # 1.7 10^3/uL (1.5-5.0); LYMPH % 29.6 % (24.0-44.0); MEAN CORPUSCULAR HGB CONC 30.5 g/dl (32.0-36.5); MEAN CORPUSCULAR VOLUME 88.4 fl (80.0-96.0); MONO # 0.5 10^3/uL (0.0-0.8); NEUTROPHILS # 3.4 10^3/uL (1.5-8.5); NEUTROPHILS % 57.9 % (36.0-66.0); PLATELET COUNT, AUTOMATED 278 10^3/uL (150-450); RED BLOOD COUNT 4.23 10^6/uL (4.00-5.40); WHITE BLOOD COUNT 5.9 10^3/uL (4.0-10.0)
[2023-02-17 17:39] LABS: PLATELET ESTIMATE NORMAL (NORMAL)
[2023-02-17 17:40] LABS: ANISOCYTOSIS 2+; HYPOCHROMASIA 2+; OVALOCYTES 1+
[2023-02-17 17:41] LABS: MICROCYTOSIS 1+; POIKILOCYTOSIS 1+
== END ==
LOC: M SFHCADAM 14:40
PROVIDERS: ATTEND Physician Assistant
DX: R04.0 Epistaxis (principal); M79.604 Pain in right leg; D50.0 Iron deficiency anemia secondary to blood loss (chronic); R60.0 Localized edema

== ENCOUNTER → 2023-02-21 | Outpatient (REF) | payer MEDICARE | LOC: M SFHCADAM 12:35 | PROVIDERS: ATTEND Physician Assistant | DX: D50.0 Iron deficiency anemia secondary to blood loss (chronic) (principal) ==

== ENCOUNTER → 2023-02-22 | Outpatient (CLI) | payer MEDICARE | LOC: M WHC 17:45 | PROVIDERS: ATTEND Family Medicine | DX: R60.9 Edema, unspecified (principal) ==

== ENCOUNTER → 2023-04-06 | Outpatient (CLI) | payer MEDICARE | LOC: M RAD 14:37 | PROVIDERS: ATTEND Family Medicine | DX: R60.9 Edema, unspecified (principal) ==

== ENCOUNTER → 2023-05-06 | Outpatient (CLI) | payer MEDICARE | LOC: M WHC 12:41 | PROVIDERS: ATTEND Family Medicine | DX: Z12.31 Encounter for screening mammogram for malignant neoplasm of breast (principal) ==